=== PATIENT | male | born 1960 | race Caucasian/White ===

== ENCOUNTER 2020-04-11 08:02 | Outpatient (REF) | payer OTHER, SELFPAY ==
--- NOTE | 2020-04-11 09:42 | XR_ITS ---
EXAMINATION: XR ELBOW, RIGHT CLINICAL INFORMATION: Pain COMPARISON: None TECHNIQUE: AP, lateral, and oblique views of the right elbow. FINDINGS: The bones and soft tissues are normal. No fracture or joint effusion. Alignment is anatomic. Joint spaces are maintained. XR/XR elbow RT min 3V IMPRESSION: Normal right elbow.
== END 2020-04-11 08:03 | disposition home or self-care (01) ==
LOC: HO.HOSX 08:02
PROVIDERS: Visit Provider Physician Assistant
DX: M25.521 Pain in right elbow (principal); M77.11 Lateral epicondylitis, right elbow; Z87.891 Personal history of nicotine dependence
CPT/HCPCS: 73080

== ENCOUNTER 2020-05-08 19:41 | Emergency (ER) | payer OTHER, SELFPAY ==
[2020-05-08 19:52] VITALS: BP 111/93; PULSE 96; RESP 18; TEMP 36.8; O2SAT 98; BMI 26.9
[2020-05-08 20:55] VITALS: BP 123/84; O2SAT 99
--- NOTE | 2020-05-08 20:56 | PC.NURSE ---
lying : 132/89 68 bpm sittin/84 77 bpm standin/73 90 bpm. earnest pa aware. plan for flluids. pt agreeable
--- NOTE | 2020-05-08 21:01 | ED.DIZZY ---
HPI - Dizziness General Chief Complaint: Dizziness Stated Complaint: covid + Time Seen by Provider: 05/08/20 20:30 Source: patient Mode of arrival: ambulatory Limitations: no limitations History of Present Illness HPI Narrative: 60 y/o male diagnosed with COVID-19 on 04/28 is presenting with dizziness upon standing that started earlier this morning. He reports it only occurs when he stands up quickly and takes a few moments to resolve. No chest pain, SOB, weakness, numbness or tingling. No difficulty ambulating. He also reports itchy bilateral hands and feet. Has been washing his hands much more frequently since diagnosis of COVID. He thinks his lips might be a little swollen and bluish coloration of lower lip. MD elicited complaint: dizziness Pertinent past history: other (COVID+) Onset (ago): day(s) Timing: sudden onset, intermittent and episodic Severity: moderate Description: lightheadedness Context: change in body position History of similar symptoms: Yes Exacerbating factors: change in body position and standing Relieving factors: remaining still and lying down Associated symptoms: denies other symptoms Related Data Home Medications Medication Instructions Recorded Confirmed mesalamine 400 mg tablet,delayed mg PO 04/11/20 release sertraline 50 mg tablet 50 mg PO DAILY 04/11/20 tamsulosin 0.4 mg capsule 0.4 mg PO DAILY 04/11/20 Previous Rx's Medication Instructions Recorded naproxen 500 mg tablet 500 mg PO BID 30 Days #60 tab 04/11/20 prednisone 40 mg PO DAILY #10 tab 05/08/20 Allergies Allergy/AdvReac Type Severity Reaction Status Date / Time No Known Allergies Allergy Verified 05/08/20 19:52 Review of Systems Review of Systems: Constitutional: No Fever, No Chills ENT/Mouth: No sore throat, No Rhinorrhea, No Swallowing Difficulty Eyes: No Eye Pain, No Swelling, No Redness Cardiovascular: No Chest Pain, No SOB, No Orthopnea, No Edema Respiratory: No Cough, No Sputum, No Wheezing, No dyspnea Gastrointestinal: No Nausea, No Vomiting, No Diarrhea, No abdominal Pain, No Hematochezia, No Melena Genitourinary: No Dysuria, No Urinary Frequency, No Hematuria Musculoskeletal: No joint pain, No Myalgias Skin: No Skin Lesions, No rash Neuro: No Weakness, No Numbness, No Dizziness, No Headache Psych: No Anxiety/Panic, No Depression Heme/Lymph: No Bruising, No Lymphadenopathy Endocrine: No Polyuria, No Polydipsia [facility] Past Medical History Medical History (Updated 05/08/20 @ 23:39 by CHAD Devi) Angioleiomyoma BPH (benign prostatic hyperplasia) Bundle branch block Cervical radiculopathy Herpes dermatitis Lumbar disc disease Reactive depression Ulcerative colitis Varicose veins of anus or rectum Surgical History (Updated 04/11/20 @ 09:50 by Palma Burrows CMA) History of spinal fusion [place] teeth extracted Social History Social History (Updated 04/11/20 @ 09:55 by Palma Burrows CMA) Alcohol intake: current Alcohol intake frequency: holidays/special occasions only Smoking Status: Former smoker Advance Directives: No Advance Directives Information Provided: Yes 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[employer], 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 Physical Exam Vital Signs: Vital Signs: Last Vital Signs Temp 98.3 F 05/08/20 19:52 Pulse 87 05/08/20 23:47 Resp 16 05/08/20 22:13 BP 106/86 05/08/20 23:47 Pulse Ox 96 05/08/20 22:13 Body Mass Index 26.9 Constitutional: No Fever, No Chills ENT/Mouth: No sore throat, No Rhinorrhea, No Swallowing Difficulty Eyes: No Eye Pain, + Swelling, + Redness, +itching Cardiovascular: No Chest Pain, No SOB, No Orthopnea, No Edema Respiratory: No Cough, No Sputum, No Wheezing, No dyspnea Gastrointestinal: No Nausea, No Vomiting, No Diarrhea, No abdominal Pain Musculoskeletal: No joint pain, + Myalgias Skin: No Skin Lesions, + rash Neuro: No Weakness, No Numbness, + Dizziness, +Headache Psych: No Anxiety/Panic, No Depression Heme/Lymph: No Bruising Course Course Course Narrative: 60 y/o COVID positive with postural dizziness, normal neurological exam. Orthostatic + - will give 1L IVF and check basic labs to r/o renal failure and electrolyte abnormalities Reevaluation(s) Reevaluation #1: Patient developed bilateral eye itching, redness and swelling with itching in hands and mild lip swelling concerning for allergic reaction. No SOB, wheezing or airway involvement. He is not on any medications, denies environmental exposures prior to arrival, last at at 1pm. No known food allergies. Will give dose of solumedrol, pepcid, bendryl and monitor. Reevaluation #2: Improvement in symptoms after steroids and benadryl. Repeat orthostatic VS pending. Reevaluation #3: Repeat orthostatic VS negative. Feels much better. Stable for d/c. MDM - Dizziness Lab Data Result diagrams: 05/08/20 21:05 05/08/20 21:05 Labs: Lab Results 05/08/20 05/08/20 Range/Units 21:05 21:05 WBC 7.6 (4.8-10.8) X10*3/uL RBC 5.69 (4.60-5.80) X10*6/uL Hgb 17.2 (14.0-18.0) g/dl Hct 50.9 (42-52) % MCV 89.5 (80-98) fL MCH 30.2 (27.0-33.0) pg MCHC 33.8 (31.0-36.0) g/dl RDW 12.1 (11.0-16.0) % Plt Count 269 (160-400) X10*3/uL MPV 9.6 (9.4-12.4) fL Immature Gran % (Auto) 0.5 H (0.0-0.4) % Neut % (Auto) 66.4 (45-73) % Lymph % (Auto) 23.9 (20-40) % [place] % (Auto) 7.7 (2-11) % Eos % (Auto) 1.2 (0-4) % Baso % (Auto) 0.3 (0-2) % Lymph # (Auto) 1.8 (1.2-4.9) X10*3/uL [place] # (Auto) 0.6 (0.1-1.2) X10*3/uL Eos # (Auto) 0.1 (0.0-0.4) X10*3/uL Baso # (Auto) 0.0 (0.0-0.2) X10*3/uL Abs Immat Gran (auto) 0.04 H (0.00-0.03) X10*3/uL Absolute Neuts (auto) 5.1 (2.0-8.3) X10*3/uL Absolute Nucleated RBC 0.000 (0.0-0.012) X10*3/uL Nucleated RBC % (auto) 0.0 (0.0-0.2) /100WBC Sodium 136 (135-145) mmol/L Potassium 4.3 (3.3-5.1) mmol/l Chloride 102 (96-108) mmol/L Carbon Dioxide 25 (22-29) mmol/L Anion Gap 13 (12-20) BUN 23 H (9-16) mg/dL Creatinine 1.13 (0.5-1.4) mg/dL Estim Creat Clear Calc 78.8 Estimated GFR > 60 Random Glucose 106 (60-115) mg/dL Calcium 8.5 (8.4-10.2) mg/dL Discharge Plan Discharge Clinical Impression: Orthostatic hypotension, COVID-19 Allergic reaction Qualifiers: Encounter type: initial encounter Qualified Code(s): T78.40XA - Allergy, unspecified, initial encounter Patient Disposition: Home, Self-Care Instructions: General Allergic Reaction (ED), COVID-19 (Coronavirus Disease 2019) (ED) Additional Instructions: Your labs showed mild dehydration. You were given IV fluids while in the ER with improvement in your vital signs. When changing positions, do so slowly until you are completely recovered from COVID-19. Rest and stay hydrated at home. Drink plenty of water. Take the prescribed steroid medication for allergic reaction. Take Benadryl 25-50 mg every 6 hours as needed for itching or swelling. Follow up with your doctor this week. If you develop worsening symptoms, shortness of breath, difficulty breathing or any other concerning symptom come back to the ER for further evaluation. Prescriptions: New prednisone 20 mg tablet 40 mg PO DAILY Qty: 10 RF: 0 No Action naproxen 500 mg tablet 500 mg PO BID 30 Days Qty: 60 RF: 3
[2020-05-08] MEDS: 0.9 % Sodium Chloride 1,000 ML 999 ML IVCONT (21:02)
[2020-05-08 21:11] LABS: Basophils Percent Auto 0.3 % (0-2); Eosinophils Absolute Auto 0.1 X10*3/uL (0.0-0.4); Eosinophils Percent Auto 1.2 % (0-4); Hematocrit 50.9 % (42-52); Hemoglobin 17.2 g/dl (14.0-18.0); Imm Gran Abs Auto 0.04 X10*3/uL (0.00-0.03); Imm Gran Pct Auto 0.5 % (0.0-0.4); Lymphocytes Absolute Auto 1.8 X10*3/uL (1.2-4.9); Lymphocytes Percent Auto 23.9 % (20-40); MANUAL DIFF FLAG NO; Mean Corpuscular HGB Conc 33.8 g/dl (31.0-36.0); Mean Corpuscular Hemoglobin 30.2 pg (27.0-33.0); Mean Corpuscular Volume 89.5 fL (80-98); Mean Platelet Volume 9.6 fL (9.4-12.4); Monocytes Absolute Auto 0.6 X10*3/uL (0.1-1.2); Monocytes Percent Auto 7.7 % (2-11); Neutrophils Absolute Auto 5.1 X10*3/uL (2.0-8.3); Neutrophils Percent Auto 66.4 % (45-73); Platelet Count 269 X10*3/uL (160-400); Red Blood Count 5.69 X10*6/uL (4.60-5.80); Red Cell Distribution Width 12.1 % (11.0-16.0); White Blood Count 7.6 X10*3/uL (4.8-10.8)
[2020-05-08 21:41] LABS: Anion Gap 13 (12-20); Blood Urea Nitrogen 23 mg/dL (9-16); Calcium 8.5 mg/dL (8.4-10.2); Carbon Dioxide 25 mmol/L (22-29); Chloride 102 mmol/L (96-108); Creatinine Clr Calc Pharmacy 78.8; Estimated Glomerular Filt Rate > 60; Glucose Random 106 mg/dL (60-115); Potassium 4.3 mmol/l (3.3-5.1); Sodium 136 mmol/L (135-145)
[2020-05-08] MEDS: diphenhydrAMINE HCL 25 MG TABLET PO (22:11)
--- NOTE | 2020-05-08 22:11 | PC.NURSE ---
Pt reports itching, redness and swelling noted to eyes and lips. Pt requesting Benadryl, medicated with Benadryl per MAR. Pt denies any recent allergens, states he has no allergies, denies new soaps/foods. VSS. Continue to monitor.
[2020-05-08 22:13] VITALS: BP 129/82; PULSE 60; RESP 16; O2SAT 96
--- NOTE | 2020-05-08 22:30 | PC.NURSE ---
MD at bedside to reeval pt due to increased itching and erthyema/swelling to eyes and lips. Pt speaking full sentences, denies difficulty swallowing. Pt aware of plan to medicate with steroids.
[2020-05-08] MEDS: Famotidine/PF 20 MG/2 ML VIAL IVPUSH (22:49)
[2020-05-08] MEDS: methylPREDNISolone Sod Succ/PF 125 MG/2 ML VIAL IVPUSH (22:49)
--- NOTE | 2020-05-08 23:26 | PC.NURSE ---
Pt reports some relief of itching, reports his feet remain itchy. Swelling and erythema to bilat eyes noted to have improved. Pt sleeping in bed at this time. Continue to monitor.
[2020-05-08 23:44] VITALS: BP 113/78; BP 120/84; PULSE 60; PULSE 74
[2020-05-08 23:47] VITALS: BP 106/86; PULSE 87
--- NOTE | 2020-05-08 23:50 | PC.NURSE ---
Orthos complete, pt denies dizziness/weakness throughout position changed. Pt's BP noted to drop from sitting to standing position. Sitting 120/84, HR 74 Standing 106/86, HR 87 PA aware. Pt requesting to use the bathroom, ambulating with a miramontes/steady gait. Continue to monitor.
--- NOTE | 2020-05-08 23:53 | PC.NURSE ---
PA at bedside for reeval. Pt aware of plan of care for DC home.
== END 2020-05-09 00:28 | disposition home or self-care (01) ==
PROVIDERS: Physician Assistant; Emergency Provider Internal Medicine; PCP Internal Medicine
DX: I95.1 Orthostatic hypotension (principal); T78.40XA Allergy, unspecified, initial encounter; X58.XXXA Exposure to other specified factors, initial encounter; Z86.16 Personal history of COVID-19
CPT/HCPCS: 36415; 80048; 85025; 96361; 96374; 96375; 99284; J2930; Q0163

== ENCOUNTER 2021-01-22 07:10 | Outpatient (REF) | payer BC, SELFPAY ==
--- NOTE | ~2021-01-22 | XR_ITS ---
EXAMINATION: XR HIP, LEFT CLINICAL INFORMATION: Left hip pain COMPARISON: None TECHNIQUE: Two views of the left hip. FINDINGS: Bones and soft tissues are normal. No fracture. Alignment is anatomic. Hip joint space is maintained. XR/XR hip LT min 2V IMPRESSION: Normal left hip.
--- NOTE | 2021-01-22 07:37 | ECG_ITS ---
Test Reason : f32.9 Blood Pressure : / mmHG Vent. Rate : 061 BPM Atrial Rate : 061 BPM P-R Int : 208 ms QRS Dur : 134 ms QT Int : 442 ms P-R-T Axes : 042 -46 034 degrees QTc Int : 444 ms Normal sinus rhythm Right bundle branch block Left anterior fascicular block Bifascicular block Minimal voltage criteria for LVH, may be normal variant ( R in aVL ) Abnormal ECG When compared with ECG of 30-DEC-2011 10:33, (RBBB and left anterior fascicular block) is now Present Referred By: Dieudonne Luna Electronically Signed By:DIEUDONNE ARRIETA
[2021-01-22 07:49] LABS: MANUAL DIFF FLAG NO
[2021-01-22 07:58] LABS: Basophils Percent Auto 0.8 % (0-2); Eosinophils Absolute Auto 0.2 X10*3/uL (0.0-0.4); Eosinophils Percent Auto 2.9 % (0-4); Hemoglobin 14.8 g/dl (14.0-18.0); Imm Gran Abs Auto 0.03 X10*3/uL (0.00-0.03); Imm Gran Pct Auto 0.6 % (0.0-0.4); Lymphocytes Absolute Auto 1.3 X10*3/uL (1.2-4.9); Lymphocytes Percent Auto 24.8 % (20-40); Mean Corpuscular HGB Conc 33.6 g/dl (31.0-36.0); Mean Corpuscular Hemoglobin 29.7 pg (27.0-33.0); Mean Corpuscular Volume 88.4 fL (80-98); Mean Platelet Volume 9.6 fL (9.4-12.4); Monocytes Absolute Auto 0.5 X10*3/uL (0.1-1.2); Monocytes Percent Auto 9.7 % (2-11); Neutrophils Absolute Auto 3.2 X10*3/uL (2.0-8.3); Neutrophils Percent Auto 61.2 % (45-73); Platelet Count 222 X10*3/uL (160-400); Red Blood Count 4.98 X10*6/uL (4.60-5.80); Red Cell Distribution Width 12.6 % (11.0-16.0); White Blood Count 5.2 X10*3/uL (4.8-10.8)
[2021-01-22 08:14] LABS: Alanine Aminotransferase 23 U/L (0-40); Albumin Level 4.4 g/dL (3.5-5.0); Alkaline Phosphatase 137 U/L (39-117); Anion Gap 12 (12-20); Aspartate Amino Transferase 23 U/L (5-37); Bilirubin Total 0.4 mg/dL (0.0-1.0); Blood Urea Nitrogen 16 mg/dL (9-16); Calcium 9.6 mg/dL (8.4-10.2); Carbon Dioxide 24 mmol/L (22-29); Chloride 107 mmol/L (96-108); Cholesterol 222 mg/dL; Estimated Glomerular Filt Rate > 60; Glucose Fasting 101 mg/dL (60-99); HDL Cholesterol 46 mg/dL; LDL Cholesterol Calculated 145 mg/dl; Potassium 4.3 mmol/L (3.3-5.1); Sodium 139 mmol/L (135-145); Triglycerides 155 mg/dL
[2021-01-22 08:43] LABS: PSA,Total (Free>4and<10) 5.96 ng/mL (0.00-4.00); Thyroid Stimulating Hormone 2.05 uIU/mL (0.32-4.0); Vitamin D 25-OH Total 31.8 ng/mL (>30)
[2021-01-23 04:31] LABS: SARS COV2 IgG Negative (Negative)
[2021-01-26 15:57] LABS: Free Prostate Spec Ag 0.6 ng/mL; Percent Free Prostate Spec Ag 11 % (calc) (>25); Prostate Specific Ag Total 5.4 ng/mL (< OR = 4.0)
== END 2021-01-22 07:11 | disposition home or self-care (01) ==
LOC: HO.XRAY 07:10
PROVIDERS: PCP Internal Medicine; Visit Provider Internal Medicine
DX: Z12.5 Encounter for screening for malignant neoplasm of prostate (principal); F32.9 Major depressive disorder, single episode, unspecified; K51.90 Ulcerative colitis, unspecified, without complications; N52.9 Male erectile dysfunction, unspecified; U07.1 COVID-19; N40.0 Benign prostatic hyperplasia without lower urinary tract symptoms
CPT/HCPCS: 36415; 73502; 80053; 80061; 82306; 84153; 84154; 84443; 85025; 86769; 93005

== ENCOUNTER 2021-05-15 06:02 | Outpatient (REF) | payer BC, SELFPAY ==
[2021-05-15 12:10] LABS: Alanine Aminotransferase 26 U/L (0-40); Albumin Level 4.4 g/dL (3.5-5.0); Alkaline Phosphatase 118 U/L (39-117); Anion Gap 12 (12-20); Aspartate Amino Transferase 25 U/L (5-37); Bilirubin Total 0.7 mg/dL (0.0-1.0); Blood Urea Nitrogen 18 mg/dL (9-16); Calcium 9.4 mg/dL (8.4-10.2); Carbon Dioxide 23 mmol/L (22-29); Chloride 107 mmol/L (96-108); Cholesterol 150 mg/dL; Estimated Glomerular Filt Rate > 60; Glucose Fasting 86 mg/dL (60-99); HDL Cholesterol 41 mg/dL; LDL Cholesterol Calculated 76 mg/dl; Potassium 4.4 mmol/L (3.3-5.1); Sodium 138 mmol/L (135-145); Triglycerides 167 mg/dL
== END 2021-05-15 06:03 | disposition home or self-care (01) ==
LOC: HO.HMGCLDS 06:02
PROVIDERS: PCP Internal Medicine; Visit Provider Internal Medicine
DX: Z00.00 Encounter for general adult medical examination without abnormal findings (principal); K51.90 Ulcerative colitis, unspecified, without complications; E78.00 Pure hypercholesterolemia, unspecified
CPT/HCPCS: 36415; 80053; 80061

== ENCOUNTER 2021-06-01 09:38 | Emergency (ER) | payer BC, SELFPAY ==
--- NOTE | ~2021-06-01 | XR_ITS ---
EXAMINATION: XR CHEST CLINICAL INFORMATION: Chest pain COMPARISON: None TECHNIQUE: Frontal view of the chest was obtained. FINDINGS: No significant abnormality is noted involving the heart, lungs, mediastinum, bony thorax or soft tissues. XR/XR chest 1V IMPRESSION: Unremarkable chest examination.
--- NOTE | 2021-06-01 09:50 | ECG_ITS ---
Test Reason : CHST PAIN Blood Pressure : / mmHG Vent. Rate : 067 BPM Atrial Rate : 277 BPM P-R Int : 000 ms QRS Dur : 134 ms QT Int : 432 ms P-R-T Axes : 040 -42 034 degrees QTc Int : 456 ms Artifact in tracing Left axis deviation Right bundle branch block Minimal voltage criteria for LVH, may be normal variant ( R in aVL ) Abnormal ECG When compared with ECG of 22-JAN-2021 07:43, No significant changes seen Referred By: Generic ED Physician Electronically Signed By:PERRY HANSON
[2021-06-01 09:51] VITALS: BP 127/91; PULSE 72; RESP 18; TEMP 37; O2SAT 98; BMI 26.3
--- NOTE | 2021-06-01 10:51 | ED_ITS ---
HPI - Chest Pain General Chief Complaint: Chest Pain Stated Complaint: Chestpain Time Seen by Provider: 06/01/21 10:49 Source: patient Mode of arrival: ambulatory Limitations: no limitations History of Present Illness HPI narrative: 61-year-old male who presents emergency department for evaluation of chest pain. Patient states that the developed a heartburn like sensation at 7:30 a.m. this morning. He states that the discomfort came on while he was driving to work. He points to his sternum and left breast when asked to localize the pain. Describes as a burning sensation. The pain is been constant and is 4/10 at its worst. he took Tums at home with no change.He states that is improving Since he has been here in the emergency department is probably 2/10 at the time of my evaluation. He denies radiation of the pain to his neck, jaw, back or arms. He denied shortness of breath, dyspnea on exertion, diaphoresis lightheadedness or dizziness. States he does feel anxious with the pain. This is the patient's 1st episode of this type of pain. The patient states that he exercises regularly and does weights and cardio exercises and he has had no limitations or chest pain in the past week. He states that yesterday he used his soot blower and shuffled his father's driveway without any shortness of breath, dyspnea on exertion or chest pain. Patient's only cardiac risk factors Arehigh cholesterol just started on statins, age. Related Data Home Medications Medication Instructions Recorded Confirmed mesalamine 400 mg tablet,delayed mg PO 04/11/20 release sertraline 50 mg tablet 50 mg PO DAILY 04/11/20 tamsulosin 0.4 mg capsule 0.4 mg PO DAILY 04/11/20 Previous Rx's Medication Instructions Recorded naproxen 500 mg tablet 500 mg PO BID 30 Days #60 tab 04/11/20 prednisone 20 mg tablet 40 mg PO DAILY #10 tab 05/08/20 Allergies Allergy/AdvReac Type Severity Reaction Status Date / Time No Known Allergies Allergy Verified 05/08/20 19:52 Review of Systems Verdana 4l Review of Systems: Yes all other systems are reviewed and Verdana 4d are negative [facility] Past Medical History [facility] Narrative: past medical history: Borderline high cholesterol to started on statins, recently diagnosed with prostate cancer, please see below. social history: He denies tobacco use. He denies drug use. He states he occasionally drinks alcohol. Family history: No early heart disease in primary relatives. 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 Physical Exam Verdana 4l Vital Signs: Verdana 4d Verdana 4d Vital Signs: Verdana 4d Verdana 4Bd Last Vital Signs Verdana 4d Fermentation Manager New 4d Fermentation Manager New 4d Temp 98.6 F 06/01/21 09:51 Fermentation Manager New 4d Pulse 58 06/01/21 12:14 Fermentation Manager New 4d Resp 14 06/01/21 12:14 BP 138/89 06/01/21 12:14 Pulse Ox 97 06/01/21 12:14 BMI result Body Mass Index 26.3 Const: General: cooperative and no acute distress Orientation/consciousness: oriented to person and oriented to place Limitations: no limitations HENMT: Head: Yes normal to inspection, Yes normocephalic and Yes atraumatic Ears: external ears normal General nose exam: Normal external nose present Face and sinus: Yes normal facial exam Mouth: Normal oral and palatal mucosa present Throat: Yes posterior oropharynx normal Eyes: General: appearance normal, both eyes and all related structures Pupils: Equal, round and reactive pupils present Neck: Neck: Yes normal visual inspection, Yes no lymphadenopathy, Yes trachea midline and Yes supple Chest: Chest palpation & inspection: normal inspection of the chest and normal palpation of entire chest wall Resp: Effort & Inspection: normal respiratory effort and able to speak in complete sentences Auscultation: clear to auscultation bilaterally Cardio: Rate: regular rate Rhythm: regular rhythm Heart sounds: S1 normal heart sound present, S2 normal heart sound present and no murmurs GI: Inspection: Yes normal to inspection Palpation (GI): Soft to palpation, nontender and no guarding Auscultation: normal bowel sounds : General: Yes no CVA tenderness Back/Spine/Pelvis: Back: no CVA tenderness Skin: General skin exam: no rashes or lesions noted Neuro: General: oriented to person and oriented to place Cranial nerves: Yes CN's II-XII intact bilaterally and Yes Equal, round and reactive pupils present Cognition (Neuro): normal cognition Motor exam (neuro): 5/5 motor strength present throughout Extrem: General: Yes normal to inspection Psych: Appearance: grossly normal Speech and movement: Normal speech and movement present Affect: normal affect Attitude: cooperative Thought process: Normal thought process present Thought content: Normal thought content present Course Course Course Narrative: 61-year-old male who presents emergency department for evaluation of sternal and left-sided chest pain that began at 7:30 a.m. while he was driving to work. Patient describes the pain as a heartburn like sensation with no other associated symptoms except anxiety. Patient's physical examination was unremarkable. Cardiac risk factors include age, male and high cholesterol. Twelve EKG was unremarkable. I did order laboratory evaluation to include CBC, CMP, troponin and chest x-ray. 1456: The patient's laboratory evaluation revealed was unremarkable. The patient's 1st high sensitive troponin I was below detectable limits. the patient's repeat at this time I do not think that the patient's pain is secondary to acute coronary syndrome and the patient's presentation is atypical for coronary artery disease. The patient was given a GI cocktail of Maalox 30 cc, viscous lidocaine 10 cc and 10 cc orally with improvement of his symptoms. The patient will be started on Pepcid and Tums. He was given printed and verbal instructions and discharged home. MDM - Chest Pain Lab Data Result diagrams: 06/01/21 11:05 06/01/21 11:05 Labs: Lab Results 06/01/21 06/01/21 06/01/21 Range/Units 11:05 11:05 11:05 WBC 5.9 (4.8-10.8) X10*3/uL RBC 4.80 (4.60-5.80) X10*6/uL Hgb 14.2 (14.0-18.0) g/dl Hct 41.9 L (42.0-52.0) % MCV 87.3 (80.0-98.0) fL MCH 29.6 (27.0-33.0) pg MCHC 33.9 (31.0-36.0) g/dl RDW 12.6 (11.0-16.0) % Plt Count 224 (160-400) X10*3/uL MPV 9.2 L (9.4-12.4) fL Immature Gran % (Auto) 0.8 H (0.0-0.4) % Neut % (Auto) 68.1 (45-73) % Lymph % (Auto) 17.5 L (20-40) % [place] % (Auto) 11.1 H (2-11) % Eos % (Auto) 1.7 (0-4) % Baso % (Auto) 0.8 (0-2) % Lymph # (Auto) 1.0 L (1.2-4.9) X10*3/uL [place] # (Auto) 0.7 (0.1-1.2) X10*3/uL Eos # (Auto) 0.1 (0.0-0.4) X10*3/uL Baso # (Auto) 0.1 (0.0-0.2) X10*3/uL Abs Immat Gran (auto) 0.05 H (0.00-0.03) X10*3/uL Absolute Neuts (auto) 4.0 (2.0-8.3) x10*3/uL Absolute Nucleated RBC 0.000 (0.0-0.012) X10*3/uL Nucleated RBC % (auto) 0.0 (0.0-0.2) /100WBC Sodium 140 (135-145) mmol/L Potassium 4.7 (3.3-5.1) mmol/L Chloride 109 H (96-108) mmol/L Carbon Dioxide 25 (22-29) mmol/L Anion Gap 11 L (12-20) BUN 18 H (9-16) mg/dL Creatinine 0.98 (0.5-1.4) mg/dL Estim Creat Clear Calc 89.7 Estimated GFR > 60 Random Glucose 99 (60-115) mg/dL Calcium 9.7 (8.4-10.2) mg/dL Total Bilirubin 0.5 (0.0-1.0) mg/dL AST 25 (5-37) U/L ALT 28 (0-40) U/L Alkaline Phosphatase 123 H (39-117) U/L Troponin I High Sens < 3.5 (<3.5-35.0) ng/L Total Protein 6.7 (6.5-8.0) g/dL Albumin 4.1 (3.5-5.0) g/dL 06/01/21 Range/Units 13:58 WBC (4.8-10.8) X10*3/uL RBC (4.60-5.80) X10*6/uL Hgb (14.0-18.0) g/dl Hct (42.0-52.0) % MCV (80.0-98.0) fL MCH (27.0-33.0) pg MCHC (31.0-36.0) g/dl RDW (11.0-16.0) % Plt Count (160-400) X10*3/uL MPV (9.4-12.4) fL Immature Gran % (Auto) (0.0-0.4) % Neut % (Auto) (45-73) % Lymph % (Auto) (20-40) % [place] % (Auto) (2-11) % Eos % (Auto) (0-4) % Baso % (Auto) (0-2) % Lymph # (Auto) (1.2-4.9) X10*3/uL [place] # (Auto) (0.1-1.2) X10*3/uL Eos # (Auto) (0.0-0.4) X10*3/uL Baso # (Auto) (0.0-0.2) X10*3/uL Abs Immat Gran (auto) (0.00-0.03) X10*3/uL Absolute Neuts (auto) (2.0-8.3) x10*3/uL Absolute Nucleated RBC (0.0-0.012) X10*3/uL Nucleated RBC % (auto) (0.0-0.2) /100WBC Sodium (135-145) mmol/L Potassium (3.3-5.1) mmol/L Chloride (96-108) mmol/L Carbon Dioxide (22-29) mmol/L Anion Gap (12-20) BUN (9-16) mg/dL Creatinine (0.5-1.4) mg/dL Estim Creat Clear Calc Estimated GFR Random Glucose (60-115) mg/dL Calcium (8.4-10.2) mg/dL Total Bilirubin (0.0-1.0) mg/dL AST (5-37) U/L ALT (0-40) U/L Alkaline Phosphatase (39-117) U/L Troponin I High Sens < 3.5 (<3.5-35.0) ng/L Total Protein (6.5-8.0) g/dL Albumin (3.5-5.0) g/dL ECG Data ECG #1: Interpretation: 1105: normal sinus rhythm rate of 63, normal [place], QTC intervals, prolonged QRS interval 134 milliseconds, right bundle-branch block, no ST segment elevation, no ST segment depression, no PACs, no PVCs, no significant change compared to 01/22/2021 Discharge Plan Discharge Clinical Impression: Chest pain, GERD (gastroesophageal reflux disease) Patient Disposition: Home, Self-Care Instructions: Gastroesophageal Reflux Disease (ED), Chest Pain (ED) Additional Instructions: Your EKG was normal. Your laboratory evaluation was unremarkable. Your 1st high sensitivity troponin I was below detectable limits. Your repeat 3 hour high sensitivity troponin I was also below detectable limits, this is a reassuring suggesting that your pain was not caused by any heart damage. Since your pain came on while you are driving and not with exertion, I think that your pain is atypical for heart pain and is more likely secondary to acid refluxing on your esophagus. Take Pepcid (famotidine) 20 mg pills, 1 pill once a day for 2-4 weeks. Take Tums, 3 tablets 4 times a day as needed for symptoms. Follow-up with your doctor in 2 days. Please return to the emergency department if your symptoms get worse or if you develop any symptoms that are concerning to you. Prescriptions: No Action prednisone 20 mg tablet 40 mg PO DAILY Qty: 10 0RF naproxen 500 mg tablet 500 mg PO BID 30 Days Qty: 60 3RF
[2021-06-01 11:09] LABS: MANUAL DIFF FLAG NO
[2021-06-01 11:25] LABS: Basophils Absolute Auto 0.1 X10*3/uL (0.0-0.2); Basophils Percent Auto 0.8 % (0-2); Eosinophils Absolute Auto 0.1 X10*3/uL (0.0-0.4); Eosinophils Percent Auto 1.7 % (0-4); Hematocrit 41.9 % (42.0-52.0); Hemoglobin 14.2 g/dl (14.0-18.0); Imm Gran Abs Auto 0.05 X10*3/uL (0.00-0.03); Imm Gran Pct Auto 0.8 % (0.0-0.4); Lymphocytes Percent Auto 17.5 % (20-40); Mean Corpuscular HGB Conc 33.9 g/dl (31.0-36.0); Mean Corpuscular Hemoglobin 29.6 pg (27.0-33.0); Mean Corpuscular Volume 87.3 fL (80.0-98.0); Mean Platelet Volume 9.2 fL (9.4-12.4); Monocytes Absolute Auto 0.7 X10*3/uL (0.1-1.2); Monocytes Percent Auto 11.1 % (2-11); Neutrophils Percent Auto 68.1 % (45-73); Platelet Count 224 X10*3/uL (160-400); Red Cell Distribution Width 12.6 % (11.0-16.0); White Blood Count 5.9 X10*3/uL (4.8-10.8)
[2021-06-01 11:38] LABS: Alanine Aminotransferase 28 U/L (0-40); Albumin Level 4.1 g/dL (3.5-5.0); Alkaline Phosphatase 123 U/L (39-117); Anion Gap 11 (12-20); Aspartate Amino Transferase 25 U/L (5-37); Bilirubin Total 0.5 mg/dL (0.0-1.0); Blood Urea Nitrogen 18 mg/dL (9-16); Calcium 9.7 mg/dL (8.4-10.2); Carbon Dioxide 25 mmol/L (22-29); Chloride 109 mmol/L (96-108); Creatinine Clr Calc Pharmacy 89.7; Estimated Glomerular Filt Rate > 60; Glucose Random 99 mg/dL (60-115); Potassium 4.7 mmol/L (3.3-5.1); Sodium 140 mmol/L (135-145); Total Protein 6.7 g/dL (6.5-8.0)
[2021-06-01 11:40] LABS: Troponin-I High Sensitivity < 3.5 ng/L (<3.5-35.0)
[2021-06-01 12:14] VITALS: BP 138/89; PULSE 58; RESP 14; O2SAT 97
[2021-06-01] MEDS: Lidocaine HCl Viscous 2 % 15 ML SOLUTION 10 ML PO (12:17)
[2021-06-01] MEDS: PHENobarb/Hyoscy/Atropine/Scop 10 ML ELIXIR PO (12:18)
[2021-06-01] MEDS: Magnesium Hydrox/Alum Hydrox 30 ML ORAL.SUSP PO (12:18)
[2021-06-01 14:22] LABS: Troponin-I High Sensitivity < 3.5 ng/L (<3.5-35.0)
== END 2021-06-01 15:11 | disposition home or self-care (01) ==
PROVIDERS: Emergency Provider Emergency Medicine Emergency Medical Services; PCP Internal Medicine
DX: R07.9 Chest pain, unspecified (principal); K21.9 Gastro-esophageal reflux disease without esophagitis
CPT/HCPCS: 36415; 71045; 80053; 84484; 85025; 93005; 99284

== ENCOUNTER 2021-07-11 09:30 | Outpatient (REF) | payer BC, SELFPAY ==
[2021-07-11 09:47] LABS: MANUAL DIFF FLAG NO
[2021-07-11 10:41] LABS: Basophils Percent Auto 0.8 % (0-2); Eosinophils Absolute Auto 0.1 X10*3/uL (0.0-0.4); Eosinophils Percent Auto 2.4 % (0-4); Hematocrit 43.2 % (42.0-52.0); Hemoglobin 14.5 g/dl (14.0-18.0); Imm Gran Abs Auto 0.02 X10*3/uL (0.00-0.03); Imm Gran Pct Auto 0.4 % (0.0-0.4); Lymphocytes Absolute Auto 1.3 X10*3/uL (1.2-4.9); Lymphocytes Percent Auto 25.2 % (20-40); Mean Corpuscular HGB Conc 33.6 g/dl (31.0-36.0); Mean Corpuscular Hemoglobin 29.7 pg (27.0-33.0); Mean Corpuscular Volume 88.5 fL (80.0-98.0); Mean Platelet Volume 9.9 fL (9.4-12.4); Monocytes Absolute Auto 0.5 X10*3/uL (0.1-1.2); Monocytes Percent Auto 9.4 % (2-11); Neutrophils Absolute Auto 3.3 x10*3/uL (2.0-8.3); Neutrophils Percent Auto 61.8 % (45-73); Platelet Count 248 X10*3/uL (160-400); Red Blood Count 4.88 X10*6/uL (4.60-5.80); Red Cell Distribution Width 12.8 % (11.0-16.0); White Blood Count 5.3 X10*3/uL (4.8-10.8)
[2021-07-11 10:51] LABS: Anion Gap 13 (12-20); Blood Urea Nitrogen 18 mg/dL (9-16); Calcium 9.7 mg/dL (8.4-10.2); Carbon Dioxide 25 mmol/L (22-29); Chloride 105 mmol/L (96-108); Estimated Glomerular Filt Rate > 60; Glucose Random 89 mg/dL (60-115); Potassium 4.8 mmol/L (3.3-5.1); Sodium 138 mmol/L (135-145)
== END 2021-07-11 09:31 | disposition home or self-care (01) ==
LOC: HO.LAB 09:30
PROVIDERS: PCP Internal Medicine; Visit Provider Internal Medicine
DX: C61 Malignant neoplasm of prostate (principal)
CPT/HCPCS: 36415; 80048; 85025

== ENCOUNTER 2022-04-12 08:37 | Outpatient (REF) | payer BC, SELFPAY ==
--- NOTE | ~2022-04-12 | XR_ITS ---
EXAMINATION: XR CHEST CLINICAL INFORMATION: Pain pleurisy COMPARISON: 06/01/2021 TECHNIQUE: 2 views of the chest were obtained. FINDINGS: Left basilar opacity consistent with atelectasis versus infiltrate. The right lung is grossly clear. There is no effusion. The cardiac silhouette is felt to be within normal limits. The hilar regions do not appear pathologically enlarged. Mild degeneration in the thoracic spine. XR/XR chest 2V IMPRESSION: Mild left basilar opacities and minimal right mid to upper lung opacities. May represent small developing areas of infiltrate or atelectasis. Follow-up films recommended after treatment to assess for resolution and establish baseline.
== END 2022-04-12 08:38 | disposition home or self-care (01) ==
LOC: HO.HMGCX 08:37
PROVIDERS: PCP Internal Medicine; Visit Provider Emergency Medicine
DX: R07.81 Pleurodynia (principal)
CPT/HCPCS: 71046

== ENCOUNTER 2022-06-18 09:40 | Outpatient (REF) | payer BC, SELFPAY ==
--- NOTE | ~2022-06-18 | XR_ITS ---
EXAMINATION: XR CHEST CLINICAL INFORMATION: Physical examination. COMPARISON: 04/12/2022 chest radiographs. TECHNIQUE: 2 views of the chest were obtained. FINDINGS: No significant abnormality is noted involving the heart, lungs, mediastinum, bony thorax or soft tissues. XR/XR chest 2V IMPRESSION: No acute cardiopulmonary process.
== END 2022-06-18 09:41 | disposition home or self-care (01) ==
LOC: HO.HMGCX 09:40
PROVIDERS: PCP Internal Medicine; Visit Provider Internal Medicine
DX: Z00.00 Encounter for general adult medical examination without abnormal findings (principal)
CPT/HCPCS: 71046

== ENCOUNTER 2022-11-05 06:09 | Outpatient (REF) | payer BC, SELFPAY ==
--- NOTE | ~2022-11-05 | XR_ITS ---
EXAMINATION: XR CERVICAL SPINE CLINICAL INFORMATION: Cervical radiculopathy. COMPARISON: None available. TECHNIQUE: 5 views of the cervical spine, inclusive of flexion and extension views, were obtained. FINDINGS: Mild diffuse osteopenia. Postsurgical changes of anterior cervical spine fusion at C5-C7 with intact hardware. Moderate degenerative spondylosis at C4-C5 and C7-T1 and mild degenerative spondylosis at C3-C4. No evidence of any change in alignment is noted between neutral, flexion and extension lateral views. The prespinal soft tissues are unremarkable. The C1-C2 alignment is intact. Both lung apices are clear. XR/XR cervical spine w flex/ext IMPRESSION: 1. Postsurgical changes of anterior cervical spine fusion at C5-C7 with intact hardware. 2. No radiographic evidence of cervical spine instability. 3. Incidental note is made of mild degenerative spondylosis at C3-C4 and moderate degenerative spondylosis at C4-C5 and C7-T1.
[2022-11-05 15:10] LABS: Alanine Aminotransferase 24 U/L (0-40); Albumin Level 4.1 g/dL (3.5-5.0); Alkaline Phosphatase 131 U/L (39-117); Anion Gap 11 (12-20); Aspartate Amino Transferase 27 U/L (5-37); Bilirubin Total 0.5 mg/dL (0.0-1.0); Blood Urea Nitrogen 16 mg/dL (9-16); Calcium 9.1 mg/dL (8.4-10.2); Carbon Dioxide 24 mmol/L (22-29); Chloride 112 mmol/L (96-108); Cholesterol 155 mg/dL; Estimated Glomerular Filt Rate > 60; Glucose Fasting 100 mg/dL (60-99); HDL Cholesterol 50 mg/dL; LDL Cholesterol Calculated 93 mg/dl; Sodium 143 mmol/L (135-145); Total Protein 6.5 g/dL (6.5-8.0); Triglycerides 64 mg/dL
[2022-11-05 15:26] LABS: Thyroid Stimulating Hormone 1.58 uIU/mL (0.32-4.0)
== END 2022-11-05 06:10 | disposition home or self-care (01) ==
LOC: HO.HMGCX 06:09
PROVIDERS: PCP Internal Medicine; Visit Provider Internal Medicine
DX: M54.12 Radiculopathy, cervical region (principal); K51.90 Ulcerative colitis, unspecified, without complications; F32.9 Major depressive disorder, single episode, unspecified; E78.00 Pure hypercholesterolemia, unspecified; C61 Malignant neoplasm of prostate; N40.0 Benign prostatic hyperplasia without lower urinary tract symptoms
CPT/HCPCS: 36415; 72052; 80053; 80061; 84443; 85025

== ENCOUNTER 2023-07-29 07:15 | Day surgery (SDC) | payer BC, SELFPAY ==
[2023-07-27 14:39] VITALS: BMI 27.3
--- NOTE | 2023-07-27 15:22 | P.CONAN_ITS ---
Documented by User: Kellie Francis NP 07/27/23 15:23 HPI - Anesthesia Eval Consult details Narrative: 63yo M for Colonoscopy PMFSH Active Problems Active Problems: All Active Problems (Updated 07/27/23 @ 14:39 by Emily Hernandez RN) COVID-19 (Acute) Lateral epicondylitis, right elbow (Acute) Past Medical History Medical History (Updated 07/27/23 @ 14:39 by Emily Hernandez RN) RBBB (right bundle branch block) Prostate cancer Anxiety Angioleiomyoma Reactive depression BPH (benign prostatic hyperplasia) Varicose veins of anus or rectum Herpes dermatitis Cervical radiculopathy Lumbar disc disease Ulcerative colitis Surgical History Surgical History (Updated 07/27/23 @ 14:40 by Emily Hernandez RN) Hx of shoulder surgery Hx of neck surgery History of colonoscopy [place] teeth extracted History of spinal fusion Social History Social History Alcohol intake: current Alcohol intake frequency: holidays/special occasions only Patient Tobacco Use Status: Never used Tobacco 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[employer] Allergies Allergy/AdvReac Type Severity Reaction Status Date / Time No Known Allergies Allergy Verified 07/29/23 07:47 Home Medications Medication Instructions Recorded Confirmed Last Taken Type mesalamine 400 mg tablet,delayed 800 mg PO BID 04/11/20 07/27/23 Unknown History release sertraline 50 mg tablet 50 mg PO DAILY 04/11/20 07/27/23 Unknown History tamsulosin 0.4 mg capsule 0.4 mg PO DAILY 04/11/20 07/27/23 Unknown History atorvastatin 10 mg tablet 10 mg PO DAILY 04/12/22 07/27/23 Unknown History diazepam 5 mg tablet 5 mg PO DAILY PRN Anxiety 07/27/23 07/27/23 Unknown History Exam Height,Weight and Vital Signs: Height 6 ft Weight 91.172 kg Assessment and Plan Assessment Anesthesia Assessment: Chart Reviewed Documented by User: Cory Desai MD 07/29/23 07:48 [facility] Past Medical History Medical History (Updated 07/27/23 @ 14:39 by Emily Hernandez RN) RBBB (right bundle branch block) Prostate cancer Anxiety Angioleiomyoma Reactive depression BPH (benign prostatic hyperplasia) Varicose veins of anus or rectum Herpes dermatitis Cervical radiculopathy Lumbar disc disease Ulcerative colitis Family History Family history of problems with anesthesia: No Surgical History Surgical History (Updated 07/27/23 @ 14:40 by Emily Hernandez RN) Hx of shoulder surgery Hx of neck surgery History of colonoscopy [place] teeth extracted History of spinal fusion History of Problems with Anesthesia: No Social History Social History Alcohol intake: current Alcohol intake frequency: holidays/special occasions only Patient Tobacco Use Status: Never used Tobacco 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[employer], [employer] Allergies Allergy/AdvReac Type Severity Reaction Status Date / Time No Known Allergies Allergy Verified 07/29/23 07:47 Home Medications Medication Instructions Recorded Confirmed Last Taken Type mesalamine 400 mg tablet,delayed 800 mg PO BID 04/11/20 07/27/23 Unknown History release sertraline 50 mg tablet 50 mg PO DAILY 04/11/20 07/27/23 Unknown History tamsulosin 0.4 mg capsule 0.4 mg PO DAILY 04/11/20 07/27/23 Unknown History atorvastatin 10 mg tablet 10 mg PO DAILY 04/12/22 07/27/23 Unknown History diazepam 5 mg tablet 5 mg PO DAILY PRN Anxiety 07/27/23 07/27/23 Unknown History Exam Airway Mallampati Class: II TM Dist: >3cm Neck ROM: Full Loose/Missing/Broken Teeth: No Heart: rrr Lungs: cta b/l Assessment and Plan Assessment Anesthesia Assessment: Anesthesia Plan Discussed Final Anesthetic Review Family History of Problems with Anesthesia: No History of Problems with Anesthesia: No NPO: Yes ASA Class: II Final Preanesthetic Review: No Changes in Pt Med Stat, Meds/Allgs Chart Reviewed, Consent Obtained/Reviewed and Anes Risks/Benef Reviewed Patient Risk: Intermediate Procedure Risk: Intermediate Anesthetic Plan Anesthetic Plan: MAC: Disposition: Standard PACU
[2023-07-29 07:44] VITALS: BMI 27.9
[2023-07-29] MEDS: Lactated Ringers 1,000 ML 100 ML IVCONT (07:53)
[2023-07-29 08:01] VITALS: BP 116/87; PULSE 71; RESP 18; TEMP 36.3; O2SAT 98
[2023-07-29 09:27] VITALS: BP 109/75; PULSE 71; RESP 20; TEMP 36.7; O2SAT 98
--- NOTE | 2023-07-29 09:31 | P.BOP_ITS ---
Brief Operative Note Date of Service: 07/29/23 Pre-op diagnosis: Ulcerative colitis, Screening Post-op diagnosis: other (Same, Diverticulosis) Procedure: Colonoscopy to the cecum with biopsies Surgeon: Dieudonne Santoyo MD Anesthesia: MAC Was an [employer] used for this Procedure?: No Estimated blood loss (mL): 2.0 Pathology: other (A. Ascending colon B. Transverse colon C. Descending colon D. Sigmoid colon E. Rectum) Condition: stable Disposition: PACU
[2023-07-29 09:42] VITALS: BP 107/75; PULSE 65; RESP 20; O2SAT 96
--- NOTE | 2023-07-29 09:53 | OP_ITS ---
DATE OF SERVICE: 07/29/2023 SURGEON: Dieudonne Santoyo MD INDICATIONS: The patient presents for evaluation of underlying history of ulcerative colitis as well as colorectal cancer screening. Full consent has been obtained from him for this, including risks of bleeding and perforation. PREOPERATIVE DIAGNOSIS: POSTOPERATIVE DIAGNOSIS: PROCEDURE PERFORMED: Colonoscopy to the cecum with multiple biopsies. ESTIMATED BLOOD LOSS: COMPLICATIONS: ANESTHESIA: Monitored anesthesia care. ASSISTANTS: SPECIMENS: PREOPERATIVE DIAGNOSES: History of ulcerative colitis and colorectal cancer screening. POSTOPERATIVE DIAGNOSES: History of ulcerative colitis, colorectal cancer screening, rule out dysplasia, diverticulosis, small internal hemorrhoids, rectal telangiectasias. DESCRIPTION OF PROCEDURE: The patient was placed in the left lateral decubitus position. The digital rectal exam revealed no abnormalities. The Olympus video pediatric colonoscope was then entered into the rectum and advanced easily to the cecum. Once in the cecum, I did identify normal-appearing cecal pouch with appendiceal orifice and a normal-appearing ileocecal valve. The entire cecum and ileocecal valve appeared normal. The scope was slowly withdrawn assessing all mucosal surfaces carefully. Preparation was excellent. I did not visualize any sign of colitis, polyps, nor any angiodysplasias. There was a mild amount of sigmoid diverticulosis. Random biopsies were obtained in the ascending colon, transverse colon, descending colon, sigmoid colon, and rectum. The rectal mucosa appeared normal in regard to there being no sign of ulcerative proctitis. In the retroflexed position, I did visualize several nonbleeding telangiectasias in relation to the previous radiation treatment. Small internal hemorrhoids were noted as well. Biopsies were also obtained from the rectum. The scope was withdrawn from the patient. He tolerated the procedure well and was returned to the recovery area in stable condition. IMPRESSION: 1. History of ulcerative colitis, rule out dysplasia. 2. Diverticulosis. 3. Internal hemorrhoids. 4. Rectal telangiectasias. PLAN: The results of the biopsies will be checked. Assuming there is no dysplasia, I would recommend a repeat colonoscopy in 5 years. He was advised to continue his current mesalamine of which he is using just 800 mg daily. He was advised not to use any aspirin and NSAIDs for at least 1 week. He will see me in 1 year for a followup office visit as well. MD VIRI Dangelo/YANDY / [phone] RIKY
[2023-07-29 09:57] VITALS: BP 112/78; PULSE 62; RESP 16; TEMP 36.7; O2SAT 96
== END 2023-07-29 10:20 | disposition home or self-care (01) ==
PROVIDERS: PCP Internal Medicine; Visit Provider Internal Medicine
PROC: 0DJD8ZZ Inspection of Lower Intestinal Tract, Via Natural or Artificial Opening Endoscopic (ICD-10-PCS; CPT 45378; principal; 2023-07-29 08:50)
DX: Z12.11 Encounter for screening for malignant neoplasm of colon (principal); K51.30 Ulcerative (chronic) rectosigmoiditis without complications; K57.30 Diverticulosis of large intestine without perforation or abscess without bleeding; K64.8 Other hemorrhoids; N40.0 Benign prostatic hyperplasia without lower urinary tract symptoms; C61 Malignant neoplasm of prostate; K62.7 Radiation proctitis; Z79.899 Other long term (current) drug therapy; Z79.1 Long term (current) use of non-steroidal anti-inflammatories (NSAID); Z98.890 Other specified postprocedural states; Z86.16 Personal history of COVID-19
CPT/HCPCS: 45380; 88305; J0461; J1596; J2704

== ENCOUNTER 2023-08-10 12:26 | Outpatient (REF) | payer BC, SELFPAY ==
--- NOTE | ~2023-08-10 | XR_ITS ---
EXAMINATION: XR CHEST CLINICAL INFORMATION: Reason for Exam DYSPNEA ON EXERTION COMPARISON: Chest radiograph 06/18/2022 TECHNIQUE: 2 views of the chest FINDINGS: Lines and tubes: Surgical clip overlies the left scapula. Partially obscured cervical fusion hardware. Clear lungs. No pleural effusion. No pneumothorax. Normal cardiomediastinal silhouette. XR/XR chest 2V IMPRESSION: * Clear lungs.
[2023-08-10 16:13] LABS: MANUAL DIFF FLAG NO
[2023-08-10 16:19] LABS: Appearance Urine Clear; Color Urine Yellow; Glucose Urine UA Negative (Negative); Leukocyte Esterase Urine Negative (Negative); Nitrite Urine Negative (Negative); PH 5.5 (5.0-9.0); Specific Gravity - Urine >= 1.030 (1.005-1.025); Urine Blood Negative (Negative); Urine Ketones Negative (Negative); Urine Protein Negative (Neg-Trace)
[2023-08-10 16:23] LABS: Bacteria Urine None Seen (None Seen); Hyaline Casts Urine 0-2 /LPF (0-2); RBC Urine 0-2 /HPF (0-2); Squamous Epithelial Cell Urine 0-2 /HPF (0-2); WBC Urine 0-5 /HPF (0-5)
[2023-08-10 16:24] LABS: B Type Natriuretic Peptide 22 pg/mL (<100)
[2023-08-10 16:25] LABS: Basophils Absolute Auto 0.1 X10*3/uL (0.0-0.2); Basophils Percent Auto 1.1 % (0-2); Eosinophils Absolute Auto 0.1 X10*3/uL (0.0-0.4); Eosinophils Percent Auto 2.2 % (0-4); Hematocrit 42.6 % (42.0-52.0); Hemoglobin 14.5 g/dl (14.0-18.0); Imm Gran Abs Auto 0.04 X10*3/uL (0.00-0.03); Imm Gran Pct Auto 0.7 % (0.0-0.4); Mean Corpuscular Hemoglobin 29.5 pg (27.0-33.0); Mean Corpuscular Volume 86.6 fL (80.0-98.0); Mean Platelet Volume 9.9 fL (9.4-12.4); Monocytes Absolute Auto 0.6 X10*3/uL (0.1-1.2); Monocytes Percent Auto 10.3 % (2-11); Neutrophils Absolute Auto 3.6 x10*3/uL (2.0-8.3); Neutrophils Percent Auto 66.7 % (45-73); Platelet Count 296 X10*3/uL (160-400); Red Blood Count 4.92 X10*6/uL (4.60-5.80); Red Cell Distribution Width 13.2 % (11.0-16.0); White Blood Count 5.4 X10*3/uL (4.8-10.8)
[2023-08-10 17:40] LABS: Alanine Aminotransferase 25 U/L (0-40); Albumin Level 4.5 g/dL (3.5-5.0); Alkaline Phosphatase 120 U/L (39-117); Anion Gap 13 (12-20); Aspartate Amino Transferase 22 U/L (5-37); Bilirubin Total 0.6 mg/dL (0.0-1.0); Blood Urea Nitrogen 24 mg/dL (9-16); C Reactive Protein < 0.10 mg/dL (< or = 0.50); Calcium 9.2 mg/dL (8.4-10.2); Carbon Dioxide 24 mmol/L (22-29); Chloride 107 mmol/L (96-108); Estimated Glomerular Filt Rate > 60; Glucose Random 86 mg/dL (60-115); Potassium 4.3 mmol/L (3.3-5.1); Sodium 140 mmol/L (135-145); Total Protein 7.2 g/dL (6.5-8.0)
[2023-08-10 17:47] LABS: Erythrocyte Sedimentation Rate 6 MM/HR (0-15)
== END 2023-08-10 12:27 | disposition home or self-care (01) ==
LOC: HO.HMGCX 12:26
PROVIDERS: PCP Internal Medicine; Visit Provider Internal Medicine
DX: R06.09 Other forms of dyspnea (principal)
CPT/HCPCS: 36415; 71046; 80053; 81001; 83880; 85025; 85652; 86140

== ENCOUNTER → 2023-08-26 08:47 | Outpatient (REF) | payer BC, SELFPAY ==
--- NOTE | 2023-08-26 | ECG_ITS ---
Test Reason : R06.09 Blood Pressure : / mmHG Vent. Rate : 064 BPM Atrial Rate : 064 BPM P-R Int : 194 ms QRS Dur : 128 ms QT Int : 422 ms P-R-T Axes : 053 -50 044 degrees QTc Int : 435 ms Normal sinus rhythm Right bundle branch block Left anterior fascicular block Bifascicular block Minimal voltage criteria for LVH, may be normal variant ( R in aVL ) Septal infarct (cited on or before 26-AUG-2023) Abnormal ECG When compared with ECG of 01-JUN-2021 09:54, Questionable change in initial forces of Septal leads Referred By: Dieudonne Luna Electronically Signed By:RADHA MENDOZA MD
--- NOTE | 2023-08-26 08:54 | CA_ITS ---
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 Normal LV ejection fraction 55-60% with mild LVH with grade 1 diastolic dysfunction 2. Normal cardiac valvular Doppler 3. Mildly dilated ascending aorta at 3.8 cm 4. Normal RV systolic pressure 5. No pericardial effusion Findings Left Ventricle Normal left ventricular size and systolic function. There is mildly increased left ventricular wall thickness. The visually estimated ejection fraction is between 55-60%. Spectral Doppler is indicative of an impaired relaxation filling pattern. E/E prime ratio is <8, consistent with normal filling pressures. Evidence suggests grade I (mild) diastolic dysfunction. Right Ventricle Normal right ventricular cavity size and systolic function. Atria The left atrium is likely dilated. There is no evidence of interatrial shunt. The right atrium is normal in size. Aortic Valve There is no aortic valve stenosis. There is no aortic valve regurgitation. Possible bicuspid aortic valve Mitral Valve Normal mitral valve structure and function. There is trace mitral valve regurgitation. There is no mitral valve stenosis. Pulmonic Valve The pulmonic valve is likely normal. There is trace pulmonic valve regurgitation. Tricuspid Valve Normal tricuspid valve structure. There is trace tricuspid valve regurgitation. The right ventricular systolic pressure is normal. The right ventricular systolic pressure is 20 mmHg. Normal right atrial pressure. There is no evidence of pulmonary hypertension. Great Vessels The pulmonary artery was not well visualized. There is mild dilatation of the ascending aorta measuring 3.80 cm. Venous The inferior vena cava is normal in size and collapses greater than 50% with inspiration. Pericardium/Pleural There is no evidence of pericardial effusion. Prior Study Comparison Changes noted compared to prior study dated: 10/03/2018. Ascending aorta is mildly dilated. Mild LVH is noted. Measurements 2D Linear Measurements IVSd: 1.21 0.6-0.9/0.6-1.0 cm LVIDd: 4.88 3.9-5.3/4.2-5.9 cm LVIDd Index: 2.22 2.4-3.2/2.2-3.1 cm/m2 LVIDs: 3.40 2.0-3.6 cm LVPWd: 1.22 0.7-1.1 cm Ao Root: 3.30 2.1-3.5 cm LA Diam: 3.30 2.7-3.8/3.0-4.0 cm LAIDs Index: 1.50 1.5-2.3 cm/m2 LV Mass: 285.38 67-162/88-224 g LV Mass Index: 129.72 43-95/49-115 g/m2 LVOT Diam: 2.30 3.0+(-)1.3 cm 2D Systolic Function EF 4C: 59.10 >55% EF 2C: 59.20 >55% EF BiP: 58.90 >55% Mitral Valve MV Pk E: 0.48 MV PK A: 0.54 MV Decel Time: 217.00 E/A: 0.90 E'Lateral: 6.09 E'Medial: 6.31 E/E' Med: 7.60 E/E' Lat: 7.90 PHT: 63.00 MVA PHT: 3.49 Decel [place]: 2.21 Aortic Valve AoV Pk Caleb: 1.48 AoV Mn Caleb: 0.92 AoV VTI: 0.29 AoV Pk Grad: 9.00 Aov Mn Grad: 4.00 EMMY Cont.VTI: 2.91 LVOT LVOT Pk Caleb: 0.96 LVOT Mn Caleb: 0.61 LVOT VTI: 0.20 LVOT Pk Grad: 4.00 LVOT Mn Grad: 2.00 LVOT Diam: 2.30 LVOT Area: 4.15 Diastolic Function MV Pk E: 0.48 MV Pk A: 0.54 E/A: 0.90 E'Medial: 6.31 E/E' Med: 7.60 E' Laterial: 6.09 E/E' Lat: 7.90 Right Ventricle TAPSE (mm): 20.00 TVS' Caleb: 12.00 Tricuspid Valve TR Pk Caleb: 2.05 TR Pk Grad: 17.00 RA Press: 3.00 RVSP: 20.00 Great Vessels Aorta Ao Root-2D: 3.30 2.0-3.7 cm Ao Asc: 3.80 2.1-3.4 cm Pulmonary Valve PV Pk Caleb: 1.19 Peak PV Grad: 6.00 Updated in Other Vendor System with Status of Final Que Zapata MD electronically signed on 08/27/2023 6:28:39 AM with status of Final
== END ==
LOC: HO.CARD 08:47
PROVIDERS: PCP Internal Medicine; Visit Provider Internal Medicine
DX: R06.09 Other forms of dyspnea (principal)
CPT/HCPCS: 93005; 93306

== ENCOUNTER → 2023-08-26 08:59 | Outpatient (BNV) | payer BC, SELFPAY | PROVIDERS: PCP Internal Medicine; Visit Provider Internal Medicine Cardiovascular Disease | DX: I45.2 Bifascicular block (principal) | CPT/HCPCS: 93010; 93306 ==

== ENCOUNTER 2024-02-13 12:19 | Emergency (ER) | payer MEDICARE, SELFPAY ==
--- NOTE | ~2024-02-13 | XR_ITS ---
EXAMINATION: XR RIBS, RIGHT CLINICAL INFORMATION: Trauma. Right-sided rib pain. COMPARISON: None available. TECHNIQUE: Frontal view of chest 6 views of the right ribs were obtained. FINDINGS: Lungs are clear. No consolidation, pneumothorax, or pleural effusion. The cardiomediastinal silhouette and pulmonary vasculature are normal. There are displaced fractures of the right posterior lateral ninth and 10th ribs. Orthopedic plate and screw lower cervical spine. XR/XR ribs RT min 3V w CXR1V IMPRESSION: Displaced fractures of the right posterior lateral ninth and 10th ribs. There is no pneumothorax. Electronically signed by: Deshawn Fuentes MD 02/13/2024 03:30 PM EDT RP
[2024-02-13 12:35] VITALS: BP 107/61; BP 107/78; PULSE 89; RESP 22; O2SAT 98; O2SAT 99; BMI 27.6
--- NOTE | 2024-02-13 13:18 | ED.FALL ---
HPI - Fall General Chief Complaint: Fall Stated Complaint: FALL Time Seen by Provider: 02/13/24 13:08 Source: patient, family ( spouse) and EMS Mode of arrival: EMS Limitations: no limitations History of Present Illness ED Provider: DR. Mg HPI Narrative: 64-year-old male brought in by ambulance after he sustained a mechanical fall, patient tripped and fell down a 6 steps of stairs landing on his right flank area, no head injury, no LOC, no headache, no neck pain, no nausea, no vomiting, patient is complaining of right upper flank area pain pain is worse with movement and taking a deep breath. Related Data Home Medications ?Medication ?Instructions ?Recorded ?Confirmed mesalamine 400 mg tablet,delayed 800 mg PO BID 04/11/20 07/27/23 release sertraline 50 mg tablet 50 mg PO DAILY 04/11/20 07/27/23 tamsulosin 0.4 mg capsule 0.4 mg PO DAILY 04/11/20 07/27/23 atorvastatin 10 mg tablet 10 mg PO DAILY 04/12/22 07/27/23 diazepam 5 mg tablet 5 mg PO DAILY PRN Anxiety 07/27/23 07/27/23 Previous Rx's ?Medication ?Instructions ?Recorded naproxen 500 mg tablet 500 mg PO BID 30 days #60 tabs 04/11/20 hydromorphone 2 mg tablet 2 mg PO .q 12 h PRN pain #20 tabs 02/13/24 (Dilaudid) Allergies Allergy/AdvReac Type Severity Reaction Status Date / Time No Known Allergies Allergy Verified 02/13/24 12:36 Review of Systems Review of Systems: All other systems are reviewed and are negative Constitutional: Reports as per HPI and Reports no additional constitutional complaints Eyes: Reports as per HPI and Reports no additional eye complaints Reports system reviewed and no additional complaints, except as documented Cardiovascular: Reports as per HPI and Reports no additional cardiovascular complaints Respiratory: Reports as per HPI and Reports no additional respiratory complaints Gastrointestinal: Reports as per HPI and Reports no additional gastrointestinal complaints Genitourinary: Reports no additional female genitourinary complaints Musculoskeletal: Reports no additional musculoskeletal complaints Skin/Breast: Reports system reviewed and no additional complaints, except as docu Psychiatric: Reports no additional psychiatric complaints Endocrine: Reports no additional endocrine complaints Hematologic/Lymphatic: Reports no additional hematologic/lymphatic complaints Allergic/Immunologic: Reports no additional allergic/immunologic complaints Reports system reviewed and no additional complaints, except as documented and Reports Abnormal speech present [facility] Past Medical History Medical History RBBB (right bundle branch block) Prostate cancer Anxiety Angioleiomyoma Reactive depression BPH (benign prostatic hyperplasia) Varicose veins of anus or rectum Herpes dermatitis Cervical radiculopathy Lumbar disc disease Ulcerative colitis Surgical History Hx of shoulder surgery Hx of neck surgery History of colonoscopy [place] teeth extracted History of spinal fusion Social History Social History Alcohol intake: current Alcohol intake frequency: holidays/special occasions only Patient Tobacco Use Status: Never used Tobacco Smoked in Last 30 Days: No Use of substances other than those prescribed or required for medical reasons: No Advance Directives: No Advance Directives Information Provided: No 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 Blood pressure elevated. Heart rate normal. Respiratory rate normal. Temperature normal. Oxygen saturation normal. Appearance: Alert. Oriented X3. No acute distress. Head: Normal external exam. Normocephalic. Atraumatic. No Harrison signs noted. No raccoon eyes noted Eyes: PERRLA. EOMI. Conjunctiva and sclera normal. Eyelids normal. ENT: TM's Normal. Pharynx normal. Uvula midline. Moist mucous membranes. No trismus noted. No drooling noted. No muffled voice noted. Neck: Normal inspection. Neck supple. FROM. No adenopathy. Thyroid Normal. No meningeal signs. No neck mass noted. CVS: Normal heart rate and rhythm. Heart sound normal. No murmurs noted. Pulses normal throughout. Respiratory: No respiratory distress. Painless inspiration. Breath sounds normal. No wheezes/rales/rhonchi noted. Right lower chest rib pain. No accessory muscle usage noted or decreased air movement noted. Abdomen: Soft and nontender. Bowel sounds normal in all 4 quadrants. No distention noted. No organomegaly noted. No visible injury noted. Back: right CVA tenderness. Full range of motion noted. Skin: Skin warm and dry. Normal skin color. Normal skin turgor. No rashes/lesions/lacerations noted. Extremities: No lower extremity edema. Extremities exhibit normal range of motion. Extremities nontender. Neuro: Oriented X 3. Cranial nerve exam: II-XII are grossly intact No motor deficit. No sensory deficit. Reflexes normal. Course Reevaluation(s) Reevaluation #1: Right 9th and 10th rib fracture with no pneumothorax, patient is in pain given Dilaudid controlling his pain better, patient was provided incentive spirometer with training and was instructed to do the breathing exercise frequently to wind pulmonary atelectasis. Will discharge the patient on Dilaudid p.r.n. for pain. Time: 15:55 Medications Administered Discontinued Medications Generic Name Dose Route Start Last Admin Trade Name Kareem PRN Reason Stop Dose Admin Hydromorphone HCl 1 mg 02/13/24 13:14 02/13/24 13:22 Hydromorphone Hcl 1 Mg/Ml Syringe IVPUSH 02/13/24 13:15 1 mg ONCE ONE Administration Protocol Hydromorphone HCl 1 mg 02/13/24 15:45 02/13/24 15:52 Hydromorphone Hcl 1 Mg/Ml Syringe IVPUSH 02/13/24 15:46 1 mg ONCE ONE Administration Protocol Ketorolac Tromethamine 15 mg 02/13/24 13:14 02/13/24 13:22 Ketorolac Tromethamine 15 Mg/Ml Vial IVPUSH 02/13/24 13:15 15 mg ONCE ONE Administration Medical Decision Making Differential Diagnosis Differential Diagnoses: The differential diagnosis associated with the presentation includes ( rib fracture, chest contusion, pneumonia.) Independent Interpretation I performed an independent interpretation of an: Plain X-Ray ( chest:Displaced fractures of the right posterior lateral ninth and 10th ribs. There is no pneumothorax. ) Radiology Impression Discussion of test interpretation with radiology: I have reviewed the radiologist's reading. Discharge Plan Discharge Clinical Impression: Rib fractures Patient Disposition: Home, Self-Care Instructions: Rib Fracture (ED) Additional Instructions: return for difficulty breathing or worsening of the pain. Prescriptions: New hydromorphone [Dilaudid] 2 mg tablet 2 mg PO .q 12 h PRN (Reason: pain) Qty: 20 0RF Rx Instructions: Partial Fill upon patient request. No Action diazepam 5 mg tablet 5 mg PO DAILY PRN (Reason: Anxiety) atorvastatin 10 mg tablet 10 mg PO DAILY tamsulosin 0.4 mg capsule 0.4 mg PO DAILY mesalamine 400 mg tablet,delayed release (DR/EC) 800 mg PO BID sertraline 50 mg tablet 50 mg PO DAILY naproxen 500 mg tablet 500 mg PO BID 30 Days Qty: 60 3RF Print Language: Turkmen
[2024-02-13] MEDS: HYDROmorphone HCl 1 MG/ML SYRINGE IVPUSH ×2 (13:22→15:52)
[2024-02-13] MEDS: Ketorolac Tromethamine 15 MG/ML VIAL IVPUSH (13:22)
[2024-02-13 16:07] VITALS: BP 110/68; PULSE 75; RESP 18; TEMP 36.7; O2SAT 99
== END 2024-02-13 16:08 | disposition home or self-care (01) ==
PROVIDERS: Emergency Provider Emergency Medicine
DX: S22.41XA Multiple fractures of ribs, right side, initial encounter for closed fracture (principal); R07.81 Pleurodynia; W10.9XXA Fall (on) (from) unspecified stairs and steps, initial encounter; Y93.89 Activity, other specified; Y92.89 Other specified places as the place of occurrence of the external cause; Y99.8 Other external cause status; Z79.899 Other long term (current) drug therapy
CPT/HCPCS: 71101; 96374; 96375; 96376; 99284; J1171; J1885

== ENCOUNTER 2025-03-04 13:12 | Outpatient (AMB) | payer MEDICARE, SELFPAY ==
--- NOTE | 2025-03-04 13:12 | MHC.PC.OV ---
Vital Signs 03/04/25 13:15 Height 5 ft 11.26 in Weight 195 lb BMI 27.0 BP 107/64 Blood Pressure Location Rt brachial Position Sitting Respiration 14 Pulse 84 Pulse Source Pulse Oximeter Temp 97.9 F Temp Source Temporal Artery Scan Pulse Oximetry (%) 97 Oxygen Delivery Method Room Air Intake Visit Reasons: Establish Care/ Dr. Alvarez/ TIM Trackless Trolley Driver Required: No Accompanied by: Self / Same As Patient Allergies No Known Allergies Allergy (Verified 03/04/25 13:13) Tobacco use date assessed: 03/04/25 Fall risk assessment: 1 Fall in past year Last assessed Fall Risk: 03/04/25 Dental Screening Dental Screen Date: 03/04/25 Did you have a dental visit in the last 12 months?: Yes Did you have a dental problem in the last 6 months where you did not have access to dental care?: No Was dental information given to patient?: Patient has dentist [facility] Medical History (Updated 03/04/25 @ 14:01 by Otf Ambrosio MD) RBBB (right bundle branch block) Prostate cancer Anxiety Angioleiomyoma Reactive depression BPH (benign prostatic hyperplasia) Varicose veins of anus or rectum Herpes dermatitis Cervical radiculopathy Lumbar disc disease Ulcerative colitis Surgical History Hx of shoulder surgery Hx of neck surgery History of colonoscopy (~07/29/23) [place] teeth extracted History of spinal fusion Social History (Updated 03/04/25 @ 13:20 by SHERRELL Cha) Housing: House Alcohol intake: current Alcohol intake frequency: holidays/special occasions only Patient Tobacco Use Status: Never used Tobacco service: No Current occupational status: employed Cognitive needs: No Hearing needs: No Vision needs: No Questionnaire PHQ-9 Over the last 2 weeks, how often have you been bothered by any of the following problems? 1. Little interest or pleasure in doing things: not at all 2. Feeling down, depressed, or hopeless: not at all 3. Trouble falling or staying asleep, or sleeping too much: not at all 4. Feeling tired or having little energy: not at all 5. Poor appetite or overeating: not at all 6. Feeling bad about yourself - or that you are a failure or have let yourself or your family down: not at all 7. Trouble concentrating on things, such as reading the newspaper or watching television: not at all 8. Moving or speaking so slowly that other people could have noticed. Or the opposite - being so fidgety or restless that you have been moving around a lot more than usual: not at all 9. Thoughts that you would be better off or of hurting yourself in some way: not at all Total score: 0 Source: Developed by Drs. Dieudonne Cloud, Maritza Beryr, Bassem Oswald and colleagues, with an educational daisy from [employer]. Thrive Questionnaire Date Thrive assessed: 03/04/25 I am a: Patient What is your living situation today?: I have a steady place to live Within the past 12 months, did the food you bought not last and you didn't have the money to get more?: Never true Within the past 12 months, did you worry whether your food would run out before you got money to buy more?: Never true Do you have trouble paying for medicines?: No Do you have trouble getting transportation to medical appointments?: No Do you have trouble paying your heating and electricity bill?: No Do you have trouble taking care of your child, family member or friend?: No Do you have trouble with day-to-day activities such as bathing, preparing meals, shopping, managing finances, etc.?: No Are you currently unemployed and looking for a job?: No Are you interested in more education?: No Please select the resources that you would like help with: None THRIVE Score: 0 AUDIT C Alcohol Use Questionnaire (AUDIT-C) 1. How often do you have a drink containing alcohol?: Monthly or less 2. How many drinks containing alcohol do you have on a typical day when you are drinking?: 1 or 2 3. How often do you have six or more drinks on one occasion?: Never Total Score: 1 KEIRY-7 AMB Questionnaire KEIRY-7 Date KEIRY - 7 assessed: 03/04/25 Feeling nervous, anxious, or on edge: 0 = Not at all Not being able to stop or control worryin = Not at all Worrying too much about different things: 0 = Not at all Trouble relaxin = Not at all Being so restless that it is hard to sit still: 0 = Not at all Becoming easily annoyed or irritable: 0 = Not at all Feeling afraid as if something awful might happen: 0 = Not at all Total KEIRY-7 score (0-4 normal; 5-9 mild; 10-14 moderate; 15-21 severe): 0 Source: Developed by Drs. Dieudonne Cloud, Maritza Berry, Bassem Oswald and colleagues, with an educational daisy from [employer]. Physical exam (Primary Care) Vital Signs: Last Vital Signs Temp 97.9 F 03/04/25 13:15 Pulse 84 03/04/25 13:15 Resp 14 03/04/25 13:15 BP 107/64 03/04/25 13:15 Pulse Ox 97 03/04/25 13:15 Oxygen Delivery Method Room Air 03/04/25 13:15 BMI result Body Mass Index 27.0 Tobacco/Smoking Status: Tobacco use Status Tobacco use date assessed 03/04/25 03/04/25 13:14 Patient Tobacco Use Status Never used Tobacco 03/04/25 13:20 PHQ-9: PHQ-9 Score PHQ-9: Total score 0 03/04/25 13:14 Thrive Assessment: Date of Thrive Assessment Date Thrive assessed 03/04/25 03/04/25 13:14 Office Procedures Flu Questionnaire Does the patient have a severe egg allergy?: No Does the patient have severe life threatening allergies?: No Does the patient have a fever or illness today?: No Has the patient ever had Guillain-[place] Syndrome?: No Has the patient ever had any past reaction to a flu shot?: No Immunizations Fluarix [id number] (PF) 45 mcg (15 mcg x 3)/0.5 mL IM syringe Performing Provider: Otf Ambrosio MD [facility] Documented (not given) by: SHERRELL Cha on 03/04/25 13:21 Reason Not Given: Patient Refused Coding Level of Care Code New Pt Level 4 (74687) Complex EM visit Add On G2211 Diagnoses Ulcerative colitis K51.90 Assessment & Plan Assessment & Plan (1) Ulcerative colitis: Code(s): K51.90 - Ulcerative colitis, unspecified, without complications Category: Medical Plan: Stable on meds Plan History of Present Illness - The patient is a 65-year-old male presenting for a new patient visit, primarily concerned about persistent dyspnea and decreased endurance for the past year. - Approximately one year ago, in January, the patient sustained a fall down his cellar stairs, resulting in two snapped ribs. - Initially, he was sent home from the hospital but returned to the emergency room 8 days later after an episode of syncope and experiencing chest pain. - A CT scan revealed his chest cavity was three-quarters full of blood, with a completely collapsed right lung and a partially collapsed left lung, a condition described as a massive right hemothorax. - Despite the severity of his condition, his vitals were stable. - He underwent placement of a chest tube, which drained 2000 cc of blood, and was hospitalized for six days. - He was readmitted for a second chest tube and administration of a thrombolytic agent after an attempt to catheterize and remove clotted blood was unsuccessful. - This intervention was successful, and he avoided thoracic surgery. - He spent a total of 12 days in the hospital over the two admissions. - Since the injury, he has experienced persistent dyspnea on exertion and fatigue, describing himself as having no wind, which has not improved over the past year. - He was referred to a pulmonary exercise program but was told by the provider there that his current gym regimen was more intensive. - He reports he has never smoked and believes his healthy lungs were the reason he survived the initial trauma. - The patient also reports recent increased fatigue following a left rotator cuff surgery last week, for which he was weaned off opioid pain medication. - His past medical history is significant for ulcerative colitis, managed by a circulator for approximately 30 years, hypercholesterolemia, and benign prostatic hyperplasia. - Current medications include sertraline, a statin, tamsulosin, and mesalamine 1000 mg twice daily by mouth for colitis. Social History - Tobacco Use: Patient denies ever smoking. - Exercise: Patient reports he goes to the gym a lot and regained his strength quickly after his hospitalization. 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 Review of Systems - Constitutional: Reports fatigue, which has been chronic for a year and acutely worsened after recent surgery. - Respiratory: Reports chronic dyspnea on exertion for the past year, feeling winded and having to post and puff with minimal activity such as climbing stairs. - Cardiovascular: Denies current chest pain. - Genitourinary: Reports taking medication to assist with urination. Physical Exam General: Cooperative and healthy appearing Nutritional Appearance: Well nourished Orientation/consciousness: Patient oriented x3 Limitations: No limitations Head: Normal to inspection General: Appearance normal, both eyes and all related structures Neck: Normal visual inspection Chest: Normal palpation of entire chest wall Respiratory: Patient reports feeling winded and tired, with shortness of breath and decreased endurance. History of pneumothorax with collapsed lungs, currently experiencing fatigue and slight difficulty breathing. ormal respiratory effort Neurology: Patient oriented x3 Results - Imaging: - CT of the chest (March of last year): Mentioned. - Chest x-ray (July): Reported as okay. Plan - I will order routine baseline blood work to evaluate for other causes of fatigue and dyspnea, such as anemia or thyroid dysfunction, which can be triggered by major injuries. - A referral will be placed for the patient to see a screening technician for further evaluation of his persistent respiratory symptoms and to establish a baseline. - The patient was reassured that his ability to undergo general anesthesia for his recent shoulder surgery is a positive indicator of his lung function. - Plan to follow up in 3 months but advised the patient to contact the office sooner if any problems arise. Discussion Notes I have discussed with the patient his primary concerns of persistent fatigue and shortness of breath, which he feels represent a significant decline in his health since his traumatic chest injury a year ago. I explained that while his past imaging has been reassuring, we need to investigate other potential causes for his symptoms. I outlined the plan to start with baseline blood work to rule out conditions like anemia or thyroid issues. We also discussed a referral to a screening technician for a specialized evaluation of his lung function. I provided reassurance by noting that his clearance for general anesthesia for his recent rotator cuff surgery is a good sign regarding his pulmonary health. The patient agreed with the plan for blood work, a pulmonology consult, and a follow-up in three months. Patient Instructions - Please go to the lab in [place] on [address] to have the ordered blood work done. - We will send a referral for you to see a lung specialist (screening technician) to further check on your breathing. - Please schedule a follow-up appointment to see me in about three months. - If you have any new or worsening problems before your next appointment, please call our office. Orders: Orders Basic Metabolic Panel Today K51.90 - Ulcerative colitis, unspecified, without complications Complete Blood Count no Diff Today K51.90 - Ulcerative colitis, unspecified, without complications Thyroid Stimulating Hormone Today K51.90 - Ulcerative colitis, unspecified, without complications UA and rflx microscopic Today K51.90 - Ulcerative colitis, unspecified, without complications Influenza [id number] Immunization Today Z23 - Encounter for immunization Lipid Panel Today K51.90 - Ulcerative colitis, unspecified, without complications Liver Panel Today K51.90 - Ulcerative colitis, unspecified, without complications Prostate Specific Antigen Scr Today K51.90 - Ulcerative colitis, unspecified, without complications Medications: New mesalamine ER 1,000 mg (2 x 500 mg) PO BID 90 caps 0RF Discontinued hydromorphone (Dilaudid) Partial Fill upon patient request. Discontinued Reason: Doctor's Order 2 mg PO .q 12 h PRN 20 tabs 0RF pain
[2025-03-04 13:15] VITALS: BP 107/64; PULSE 84; RESP 14; TEMP 36.6; O2SAT 97; BMI 27.0
== END 2025-03-04 14:13 | disposition home or self-care (01) ==
LOC: HO.HMCSH 13:12
PROVIDERS: PCP Physician Assistant Medical; Visit Provider Internal Medicine
DX: K51.90 Ulcerative colitis, unspecified, without complications (principal); Z23 Encounter for immunization

== ENCOUNTER → 2025-03-04 13:12 | Outpatient (BNVA) | payer MEDICARE, SELFPAY | PROVIDERS: PCP Physician Assistant Medical; Visit Provider Internal Medicine | DX: Z76.89 Persons encountering health services in other specified circumstances (principal); K51.90 Ulcerative colitis, unspecified, without complications; R53.83 Other fatigue; R06.02 Shortness of breath; E78.00 Pure hypercholesterolemia, unspecified; N40.0 Benign prostatic hyperplasia without lower urinary tract symptoms; Z13.31 Encounter for screening for depression; Z13.39 Encounter for screening examination for other mental health and behavioral disorders | CPT/HCPCS: 90471; 96127; 99202 ==

== ENCOUNTER 2025-03-05 06:03 | Outpatient (REF) | payer MEDICARE, SELFPAY ==
--- OUTSIDE RECORDS SUMMARY | 2025-03-05 06:06 | XMS_ITS | Clinical Summary ---
Author Organization [facility] Address [address] [place] [address] Phone Care Team Providers Care Welfare Manager Name Role Phone Dieudonne Luna DO Primary Care Provider [phone] Allergies No known active allergies Medications tamsulosin (FLOMAX) 0.4 mg Cap Take 0.4 mg by mouth daily. Active mesalamine (ASACOL ORAL) Take 400 mg by mouth daily. Active sertraline (ZOLOFT) 100 MG tablet Take 100 mg by mouth daily. Active atorvastatin (LIPITOR) 10 MG tablet Take 10 mg by mouth daily. Active sildenafiL (VIAGRA) 50 mg tablet Take 50 mg by mouth daily as needed for erectile dysfunction. Active Active Problems Problem Noted Date Diagnosed Date Prostate cancer 06/11/2021 Family History Medical History Relation Comments Cancer Brother Cancer Son Relation Status Comments Brother Alive Son Alive Social History Tobacco Use Types Packs/Day Years Used Date Smoking Tobacco: Never Smokeless Tobacco: Never Education Answer Date Recorded Are you interested in more education? Not on momo e 08/26/2022 Are you concerned about learning? Not on file 08/26/2022 No 08/26/2022 No 08/26/2022 Digital Access Answer Date Recorded No 09/27/2022 No 09/27/2022 No 09/27/2022 Reliable internet access at home? Not on file 09/27/2022 Device with a working camera? Not on file Sex and Gender Information Value Date Recorded Sex Assigned at Not on file Legal Sex Male 7:52 PM EST Gender Identity Not on file Sexual Orientation Not on file Last Filed Vital Signs Vital Sign Reading Time Taken Comments Blood Pressure 126/80 09/14/2021 8:28 AM EDT Pulse 89 09/14/2021 8:28 AM EDT Temperature - - Respiratory Rate - - Oxygen Saturation 97% 09/14/2021 8:28 AM EDT Inhaled Oxygen Concentration - - Weight 94.1 kg (207 lb 6.4 oz) 09/14/2021 8:28 A M EDT Height - - Body Mass Index - - Plan of Treatment Health Maintenance Due Date Last Done Comments Adult Td,Tdap Booster 1958 LIPID PANEL 1958 DEPRESSION SCREENING 1970 HEPATITIS C SCREENING 01/26/1976 PNEUMOCOCCAL VACCINES (50+ years) (1 of 2 - PCV) 1977 ZOSTER VACCINES (1 of 2) 1977 COLOGUARD 2003 COLONOSCOPY 2003 COLORECTAL CANCER SCREENING 2003 FIT TEST 2003 FOBT 2003 SIGMOIDOSCOPY 2003 VIRTUAL COLONOSCOPY 2003 INFLUENZA VACCINE (#1) 2024 0, 05/04/2019 COVID-19 VACCINE (3 - 2024-2 6 season) 2024 05/18/2021, 04/27/2021 RSV VACCINE (1 - 1-dose 75+ series) 2033 SMOKING STATUS SCREENING (On ce After 26 Yrs) Completed 06/05/2021 HEPATITIS A VACCINES Aged Out No long er eligible based on patient's age to complete this topic HIB VACCINES Aged Out No longer eligi ble based on patient's age to complete this topic MENINGOCOCCAL VACCINES (ACWY) Aged Out No longer eligible based on patient's age to complete this topic MENINGOCOCCAL VACCINES (B) Aged Out N o longer eligible based on patient's age to complete this topic Medical Devices Not on file Insurance MEDICARE PART A & B [employer] Newsletter [employer] MEDEX SUPPLEMENT MEDICARE PART A & B [employer] MEDEX SUPPLEMENT MEDICARE PART A & B Member Subscriber Plan / Payer (Ef fective 2023-) Name:Pedro Luis Maradiaga Member ID:[id number] Relation to Subscriber:Self Name:Pedro Luis Maradiaga Subscriber ID:[id number] Payer ID:[id number] Group ID:Not on file Type:Medicare Address: [employer] [address] [place] [id number] [employer] MEDEX SUPPLEMENT MEDICARE PART A & B Member Subscriber Plan / Payer ( fective 2023-) Name:Pedro Luis Maradiaga Member ID:[id number] Relation to Subscriber:Self Name:Pedro Luis Maradiaga Subscriber ID:[id number] Payer ID:[id number] Group ID:Not on file Type:Medicare Address: [employer] [address] [place] [phone] BLUE CROSS MEDEX SUPPLEMENT MEDICARE PART A & B Member Subscriber Plan / Payer ( fective 2023-) Name:Pedro Luis Maradiaga Member ID:[id number] Relation to Subscriber:Self Name:MaradiagaPedro Luis monteiro Subscriber ID:[id number] Payer ID:[id number] Group ID:Not on file Type:Medicare Address: [employer] [address] [place] [address] [employer] SUPPLEMENT MEDICARE PART A & B Member Subscriber Plan / Payer ( fective 2023-) Name:Pedro Luis Maradiaga Member ID:[id number] Relation to Subscriber:Self Name:MaradiagaPedro Luis Subscriber ID:[id number] Payer ID:[id number] Group ID:Not on file Type:Medicare Address: [employer] [address] [place], [place] [id number] [employer] SUPPLEMENT Care Teams Welfare Manager Relationship Specialty Start Date End Date Dieudonne Luna DO [address] [place] [id number] PCP - General 05/26/21 Additional Source Comments The information contained in this document represents components of the legal health record. It is not the complete legal health record.[facility]
--- OUTSIDE RECORDS SUMMARY | 2025-03-05 06:07 | XMS_ITS | Encounter Summary ---
Author Organization [facility] Address [address] [place] [phone] Phone Care Team Providers Care Awning Craftsman Name Role Phone Dieudonne Luna DO Primary Care Provider [phone] Encounter Details Date Type Department Care Team (Late st Contact Info) Description 06/02/2021 Ancillary Orders [facility],Outside Imaging [address] [place] [address] System, Provider Not In, [place] [address] Social History Tobacco Use Types Packs/Day Years Used Date Smoking Tobacco: Never Assessed Sex and Gender Information Value Date Recorded Sex Assigned at Not on file Legal Sex Male 7:52 PM EST Gender Identity Not on file Sexual Orientation Not on file documented as of this encounter Plan of Treatment Not on file documented as of this encounter Results * MRI Pelvis (Soft Tissue) Outside (No Interpretation) (03/13/2021 12:00 AM EST) Narrative SYSTEMGENERATED, DOCUMENTATION - 06/02/2021 2:38 PM EST This study is for PACS storage only and not for interpretation. us Provider Not In System PhD IMG OUTSIDE IMAGING W /OUT INTERPRETATION Final Result documented in this encounter Visit Diagnoses Not on filedocumented in this encounter Care Teams Awning Craftsman Relationship Specialty Start Date End Date Dieudonne Luna DO [address] [place] [id number] PCP - General 05/26/21 documented as of this encounter Additional Source Comments The information contained in this document represents components of the legal health record. It is not the complete legal health record.[facility]
--- OUTSIDE RECORDS SUMMARY | 2025-03-05 06:07 | XMS_ITS | Clinical Summary ---
Author Organization [facility] Address [address] [place] [address] Phone Care Team Providers Care Nutrition Services Worker Name Role Phone Dieudonne Luna DO Primary Care Provider [phone] Social History Tobacco Use Types Packs/Day Years Used Date Smoking Tobacco: Never Assessed Sex and Gender Information Value Date Recorded Sex Assigned at Not on file Legal Sex Male 12:51 AM EST Gender Identity Not on file Sexual Orientation Not on file Plan of Treatment Health Maintenance Due Date Last Done Comments Colorectal Cancer Screening: Colonoscopy 1958 DTaP,Tdap,and Td Vaccines (1 - Tdap) 1977 Pneumococcal Vaccine: 50+ Ye ars (1 of 1 - PCV) 01/26/2008 Zoster Vaccines (1 of 2) 01/26/2008 Depression Screening 05/02/2024 Abdominal Aortic Aneurysm (A AA) Screen 10/11/2024 Cholesterol Screening (Lipid Panel) 10/11/2024 Falls Risk Assessment 10/11/2024 Hepatitis C Screening 10/11/2024 Medicare Annual Wellness Visit 10/11/2024 Social Influencers of Health Screening 10/11/2024 COVID-19 Vaccine (1 - 2023-2 5 season) 2024 Influenza Vaccine (#1) 2024 RSV Immunization Adult Patie nts (1 - 1-dose 75+ series) 2033 HIB Vaccines Aged Out No longer eligi ble based on patient's age to complete this topic HPV Vaccines Aged Out No longer eligi ble based on patient's age to complete this topic Hepatitis A Vaccines Aged Out No long er eligible based on patient's age to complete this topic Hepatitis B Vaccines Aged Out No long er eligible based on patient's age to complete this topic IPV Vaccines Aged Out No longer eligi ble based on patient's age to complete this topic MMR Vaccines Aged Out No longer eligi ble based on patient's age to complete this topic Meningococcal ACWY Vaccine Aged Out N o longer eligible based on patient's age to complete this topic Meningococcal B Vaccine Aged Out No l onger eligible based on patient's age to complete this topic RSV Immunization Patients Un onel 20 months Aged Out No longer eligible b ased on patient's age to complete this topic Varicella Vaccines Aged Out No longer eligible based on patient's age to complete this topic Insurance MEDICARE [facility] Care Teams Nutrition Services Worker Relationship Specialty Start Date End Date Dieudonne Luna DO [address] [place] [phone] PCP - General Internal Medicine 11/30/24
--- OUTSIDE RECORDS SUMMARY | 2025-03-05 06:07 | XMS_ITS | Encounter Summary ---
Author Organization [facility] Address [address] [place] [phone] Care Team Providers Care Armored Cable Machine Operator Name Role Phone Dieudonne Luna DO Primary Care Provider [phone] Encounter Details Date Type Department Care Team (Late st Contact Info) Description 11/30/2024 Lab Requisition [facility] - Main Lab 299 [facility] [place] [address] Musa Bassett MD 364 [facility] 103 [place] [address] Urinary tract infection, site not specified Social History Tobacco Use Types Packs/Day Years Used Date Smoking Tobacco: Never Assessed Sex and Gender Information Value Date Recorded Sex Assigned at Not on file Legal Sex Male 12:51 AM EST Gender Identity Not on file Sexual Orientation Not on file documented as of this encounter Plan of Treatment Not on file documented as of this encounter Procedures Procedure Name Priority Date/Time Associated Diagnosis Comments BACTERIAL IDENTIFICATION AND SUSCEPTIBILITY, AEROBIC Routine 11/29/2024 11:46 AM EDT Urinary tract infection, site not specified documented in this encounter Results * (ABNORMAL) Bacterial identification and susceptibility, aerobic (11/29/2024 11:46 AM EDT) Culture, Bacterial ID and Sensitivity Escherichia coli(A) NORMA 12/01/2024 8:08 AM EDT [facility] ([facility]) [facility] Other Urine specimen from urethra / Unknown Non-blood Collection / Unknown 11/29/2024 11:46 AM EDT 11/30/2024 10:18 AM EDT Narrative Organism Antibiotic Method Susceptibility Escherichia coli Amoxicillin/Clavulanate NORMA 4 ug/ml: Susceptible Escherichia coli Ampicillin/Sulbactam NORMA >=32 ug/ml: Resistant Escherichia coli Piperacillin/Tazobactam NORMA <=4 ug/ml: Susceptible Escherichia coli Cefazolin (Urine) NORMA 2 ug/ml: Susceptible Escherichia coli Cefoxitin NORMA <=4 ug/ml: Susceptible Escherichia coli Ceftazidime NORMA <=0.5 ug/ml: Susceptible Escherichia coli Ceftriaxone NORMA <=0.25 ug/ml: Susceptible Escherichia coli Cefepime NORMA <=0.12 ug/ml: Susceptible Escherichia coli Meropenem NORMA <=0.25 ug/ml: Susceptible Escherichia coli Amikacin NORMA 2 ug/ml: Susceptible Escherichia coli Gentamicin NORMA <=1 ug/ml: Susceptible Escherichia coli Ciprofloxacin NORMA <=0.06 ug/ml: Susceptible Escherichia coli Levofloxacin NORMA <=0.12 ug/ml: Susceptible Escherichia coli Nitrofurantoin NORMA <=16 ug/ml: Susceptible Escherichia coli Trimethoprim/Sulfamethoxazole NORMA <=20 ug/ml: Susceptible us Musa Bassett MD LAB MICROBIOLOGY - GENERAL ORDER CK Final Result [facility] ([facility]) HOSPITAL LAB [address] [place] [address], documented in this encounter Visit Diagnoses Diagnosis Urinary tract infection, site not specified documented in this encounter Care Teams Armored Cable Machine Operator Relationship Specialty Start Date End Date Dieudonne Luna DO [address] [place] [phone] PCP - General Internal Medicine 11/30/24 documented as of this encounter
--- OUTSIDE RECORDS SUMMARY | 2025-03-05 06:07 | XMS_ITS | Encounter Summary ---
Author Organization [facility] Address [address] [place] [phone] Care Team Providers Care Airplane Tube Builder Name Role Phone Dieudonne Luna DO Primary Care Provider [phone] Encounter Details Date Type Department Care Team (Late st Contact Info) Description 10/10/2024 Lab Requisition [facility] - Main Lab 299 [facility] [place] [address] Delmer Soto PA [address] [facility] 103 [place] [address] Malignant neoplasm of prostate ([facility]/HCC V24, CMS/[facility] V28) Social History Tobacco Use Types Packs/Day Years [...] Procedure Name Priority Date/Time Associated Diagnosis Comments PROSTATE SPECIFIC ANTIGEN DIAGNOSTIC Routine 10/10/2024 10:18 AM EDT Malignant neoplasm of prostate (CMS/HCC V24, CMS/HCC V28) documented in this encounter Results * Prostate specific antigen diagnostic (10/10/2024 10:18 AM EDT) PSA 0.30 0.00 - 4.00 ng/mL LAB CHEMISTRY METHOD 10/10/2024 3:59 PM EDT [facility] ([facility]) [facility] LAB Blood Venous blood specimen / Unknown 10/10/2024 10:18 AM EDT 10/10/2024 1:31 PM EDT Narrative [facility] ([facility] - 10/10/2024 3:59 PM EDT The Siemens Advia Centaur Chemiluminescent Immunoassay is used. Results obtained with different assay methods or kits cannot be used interchangeably. Results cannot be interpreted as absolute evidence of the presence or absence of malignant disease. us Delmer BONILLA LAB BLOOD ORDERABLES Final Resul t [facility] [address] [place] [address], documented in this encounter Visit Diagnoses Diagnosis Malignant neoplasm of prostate (CMS/HCC V24, CMS/HCC V28) Malignant neoplasm of prostate documented in this encounter Care Teams Airplane Tube Builder Relationship Specialty Start Date End Date Dieudonne Luna DO [address] [place] [phone] PCP - General Internal Medicine 11/30/24 documented as of this encounter
[2025-03-05 10:40] LABS: Appearance Urine Clear; Glucose Urine UA Negative (Negative); PH 7.0 (5.0-9.0); Specific Gravity - Urine 1.020 (1.005-1.025); UMIC TRIGGER UA YES
[2025-03-05 10:43] LABS: Hematocrit 44.8 % (42.0-52.0); Hemoglobin 14.9 g/dl (14.0-18.0); Mean Corpuscular HGB Conc 33.3 g/dl (31.0-36.0); Mean Corpuscular Hemoglobin 29.9 pg (27.0-33.0); Mean Corpuscular Volume 90.0 fL (80.0-98.0); NRBC Abs Auto 0.000 X10*3/uL (0.0-0.012); NRBC Pct Auto 0.0 /100WBC (0.0-0.2); Platelet Count 255 X10*3/uL (160-400); Red Blood Count 4.98 X10*6/uL (4.60-5.80); White Blood Count 5.9 X10*3/uL (4.8-10.8)
[2025-03-05 11:05] LABS: Alanine Aminotransferase 32 U/L (0-40); Albumin Level 4.5 g/dL (3.5-5.0); Alkaline Phosphatase 115 U/L (39-117); Anion Gap 11 (12-20); Aspartate Amino Transferase 39 U/L (5-37); Blood Urea Nitrogen 24 mg/dL (9-16); Calcium 9.4 mg/dL (8.4-10.2); Carbon Dioxide 26 mmol/L (22-29); Chloride 109 mmol/L (96-108); Cholesterol 169 mg/dL (<200); Estimated Glomerular Filt Rate > 60; HDL Cholesterol 48 mg/dL (>40); Potassium 4.3 mmol/L (3.3-5.1); Sodium 142 mmol/L (135-145); Total Protein 7.1 g/dL (6.5-8.0); Triglycerides 111 mg/dL (<150)
[2025-03-05 11:25] LABS: Thyroid Stimulating Hormone 1.58 uIU/mL (0.32-4.0)
== END 2025-03-05 06:04 | disposition home or self-care (01) ==
LOC: HO.HMGCLDS 06:03
PROVIDERS: PCP Internal Medicine; Visit Provider Internal Medicine
DX: K51.90 Ulcerative colitis, unspecified, without complications (principal); Z12.5 Encounter for screening for malignant neoplasm of prostate; Z13.29 Encounter for screening for other suspected endocrine disorder; Z13.6 Encounter for screening for cardiovascular disorders
CPT/HCPCS: 36415; 80048; 80061; 80076; 81001; 84153; 84443; 85027

== ENCOUNTER 2025-04-29 12:07 | Outpatient (REF) | payer MEDICARE, SELFPAY ==
--- NOTE | ~2025-04-29 | XR_ITS ---
EXAMINATION: XR CHEST 2 VIEWS HISTORY: R05.9 - Cough, unspecified COMPARISON: Comparison is made with the prior examination dated 02/13/2024. FINDINGS: PA and lateral views of the chest are submitted. The lungs are expanded and clear. There is no pleural effusion, pneumothorax, or pulmonary vascular congestion. The heart is normal in size. The bones are intact. A portion of a fusion plate is seen in the lower cervical spine. XR/XR chest 2V IMPRESSION: No acute cardiopulmonary abnormality. Electronically signed by: Dieudonne Martinez MD 04/29/2025 01:49 PM EST
[2025-04-29 19:02] LABS: Resp Syncy Virus RNA Qual PCR POSITIVE (Negative); SARS COV2 PCR INHOUSE NEGATIVE (Negative)
== END 2025-04-29 12:08 | disposition home or self-care (01) ==
LOC: HO.HMGCX 12:07
PROVIDERS: PCP Internal Medicine; Visit Provider Nurse Practitioner Family
DX: R05.9 Cough, unspecified (principal); J06.9 Acute upper respiratory infection, unspecified
CPT/HCPCS: 71046; 87637; 99212

== ENCOUNTER 2025-04-29 12:07 | Outpatient (AMB) | payer MEDICARE, SELFPAY ==
--- NOTE | 2025-04-29 12:19 | MHC.OFFWIV ---
Intake Vital Signs 04/29/25 12:20 Height 5 ft 11 in Weight 200 lb BMI 27.9 BP 110/62 Blood Pressure Location Rt brachial Position Sitting Pulse 65 Pulse Source Pulse Oximeter Temp 97.9 F Temp Source Oral Pulse Oximetry (%) 96 Oxygen Delivery Method Room Air Intake Visit Reasons: EP Cold symptoms for 2 weeks Intake Note: Patient presents c/o sinus congestion, fatigue, SOB x2 weeks. Patient Tobacco Use Status: Never used Tobacco Allergies No Known Allergies Allergy (Verified 04/29/25 12:20) HPI HPI Comments History of Present Illness Details 65-year-old male presents to the walk-in clinic with complaints of upper respiratory symptoms for the past 2 weeks. Reports sinus congestion, fatigue, and shortness of breath. States he has been taking ooyc-gwd-touishl remedies with no relief. Denies fevers, chills, nausea, or vomiting. No other associated symptoms reported. [facility] Medical History (Updated 04/29/25 @ 13:22 by Harriett Pereira NP) Cough Shortness of breath RBBB (right bundle branch block) Prostate cancer Anxiety Angioleiomyoma Reactive depression BPH (benign prostatic hyperplasia) Varicose veins of anus or rectum Herpes dermatitis Cervical radiculopathy Lumbar disc disease Ulcerative colitis Surgical History Hx of shoulder surgery Hx of neck surgery History of colonoscopy (~07/29/23) [place] teeth extracted History of spinal fusion Social History (Updated 03/04/25 @ 13:20 by SHERRELL Cha) Housing: House Alcohol intake: current Alcohol intake frequency: holidays/special occasions only Patient Tobacco Use Status: Never used Tobacco service: No Current occupational status: employed Cognitive needs: No Hearing needs: No Vision needs: No Review of Systems Const All systems reviewed & are unremarkable except as noted in HPI and below Physical Exam Vital Signs: Last Vital Signs Temp 97.9 F 04/29/25 12:20 Pulse 65 04/29/25 12:20 BP 110/62 04/29/25 12:20 Pulse Ox 96 04/29/25 12:20 Oxygen Delivery Method Room Air 04/29/25 12:20 BMI result Body Mass Index 27.9 Const General: no acute distress Nutritional Appearance: well nourished Orientation/consciousness: patient oriented x3 HEENT Head: Yes normocephalic Ears: external ears normal and TM abnormal bulging and with fluid behind the TM bilateral General nose exam: Normal external nose present Face and sinus: Yes sinuses nontender Mouth: moist mucous membranes Throat: Yes uvula midline Resp Effort & Inspection: normal respiratory effort, able to speak in complete sentences and Actively coughing Auscultation: no crackles, no rales, rhonchi and wheezes Cardio Heart sounds: S1 normal heart sound present and S2 normal heart sound present Neuro General: patient oriented x3 Assessment & Plan Assessment & Plan (1) Cough: Code(s): R05.9 - Cough, unspecified Plan: Ordered Chest Xray due to Abnormal Lung Sounds. Ordered SARs Ordered Zpack for 3 days. Recommend intranasal corticosteroid spray daily Continue supportive care: hydration, rest, saline nasal spray May use acetaminophen or ibuprofen as needed for discomfort Educated patient on red flag symptoms: worsening SOB, chest pain, high fever, or dizziness Orders: Orders XR chest 2V Today R05.9 - Cough, unspecified SARS-CoV2/FLU/RSV Today R05.9 - Cough, unspecified Medications: New dextromethorphan polistirex ER (Delsy 12 hour) 10 mL PO Q12H 89 mL 0RF cough J06.9 - Acute upper respiratory infection, unspecified prednisone 50 mg PO DAILY 5 tabs 0RF 5 days R05.9 - Cough, unspecified azithromycin 500 mg PO DAILY 3 tabs 0RF 3 days R05.9 - Cough, unspecified Coding Level of Care Code Est Pt Level 4 (96819) Diagnoses Cough R05.9 Time Spent (min) 20
[2025-04-29 12:20] VITALS: BP 110/62; PULSE 65; TEMP 36.6; O2SAT 96; BMI 27.9
--- OUTSIDE RECORDS SUMMARY | 2025-04-29 14:12 | XMS_ITS | Encounter Summary ---
Author Organization [facility] Address [address] [place] [phone] Phone Care Team Providers Care Instant Printer Operator Name Role Phone Dieudonne Luna DO Primary Care Provider [phone] Encounter Details Date Type Department Care Team (Late st Contact Info) Description 06/02/2021 Ancillary Orders [facility],Outside Imaging [address] [place] [address] System, Provider Not In, [place] [address] Social History Tobacco Use Types Packs/Day Years [...] on filedocumented in this encounter Care Teams Instant Printer Operator Relationship Specialty Start Date End Date Dieudonne Luna DO [address] [place] [phone] PCP - General 05/26/21 documented as of this encounter Additional Source Comments The information contained in this document represents components of the legal health record. It is not the complete legal health record.[facility]
--- OUTSIDE RECORDS SUMMARY | 2025-04-29 14:12 | XMS_ITS | Encounter Summary ---
Author Organization [facility] Address [address] [place] [phone] Care Team Providers Care Engineering Drawings Checker Name Role Phone Dieudonne Luna DO Primary Care Provider [phone] Encounter Details Date Type Department Care Team (Late st Contact Info) Description 11/30/2024 Lab Requisition [facility] - Main Lab 299 [facility] [place] [address] Musa Bassett MD [address] [facility] 103 [place] [address] Urinary tract infection, site not [...] Escherichia coli(A) NORMA 12/01/2024 8:08 AM EDT [facility] ([facility]) [facility] Other Urine specimen from urethra / [...] MICROBIOLOGY - GENERAL ORDER CK Final Result [facility] ([facility]) HOSPITAL LAB [address] [place] [address], documented in this encounter Visit Diagnoses Diagnosis Urinary tract infection, site not specified documented in this encounter Care Teams Engineering Drawings Checker Relationship Specialty Start Date End Date Dieudonne Luna DO [address] [place] [phone] PCP - General Internal Medicine 11/30/24 documented as of this encounter
--- OUTSIDE RECORDS SUMMARY | 2025-04-29 14:12 | XMS_ITS | Clinical Summary ---
Author Organization [facility] Address [address] [place] [phone] Phone Care Team Providers Care Multiple Drill Operator Name Role Phone Dieudonne Luna DO Primary Care Provider [phone] Allergies No known active allergies Medications tamsulosin [...] file Insurance MEDICARE PART A & B [employer] SUPPLEMENT MEDICARE PART A & B [employer] MED[employer] SUPPLEMENT MEDICARE PART A & B [employer] SUPPLEMENT MEDICARE PART A & B [employer] SUPPLEMENT MEDICARE PART A & B [employer] SUPPLEMENT MEDICARE PART A & B [employer] SUPPLEMENT Care Teams Multiple Drill Operator Relationship Specialty Start Date End Date Dieudonne Luna DO [address] [place] [phone] PCP - General 05/26/21 Additional Source Comments The information contained in this document represents components of the legal health record. It is not the complete legal health record.[facility]
--- OUTSIDE RECORDS SUMMARY | 2025-04-29 14:12 | XMS_ITS | Encounter Summary ---
Author Organization [facility] Address [address] [place] [phone] Care Team Providers Care Blending Operator Name Role Phone Dieudonne Luna DO Primary Care Provider [phone] Encounter Details Date Type Department Care Team (Late st Contact Info) Description 10/10/2024 Lab Requisition [facility] - Main Lab 299 [facility] [place] [address] Delmer Soto PA [address] [facility] 103 [place] [address] Malignant neoplasm of prostate ([facility]/HCC V24, CMS/[facility] V28) Social History Tobacco Use Types Packs/Day [...] LAB CHEMISTRY METHOD 10/10/2024 3:59 PM EDT [facility] ([email or web address] Blood Venous blood specimen / Unknown 10/10/2024 10:18 AM EDT 10/10/2024 1:31 PM EDT Narrative [facility] ([facility] LAB - 10/10/2024 3:59 PM EDT The Siemens Advia Centaur Chemiluminescent Immunoassay is used. Results obtained with different assay methods or kits cannot be used interchangeably. Results cannot be interpreted as absolute evidence of the presence or absence of malignant disease. us Delmer BONILLA LAB BLOOD ORDERABLES Final Resul t [facility] [address] [place] [address], documented in this encounter Visit Diagnoses Diagnosis Malignant neoplasm of prostate (CMS/HCC V24, CMS/HCC V28) Malignant neoplasm of prostate documented in this encounter Care Teams Blending Operator Relationship Specialty Start Date End Date Dieudonne Luna DO [address] [place] [phone] PCP - General Internal Medicine 11/30/24 documented as of this encounter
--- OUTSIDE RECORDS SUMMARY | 2025-04-29 14:12 | XMS_ITS | Clinical Summary ---
Author Organization 299 [facility] Address [address] [place] [address] Phone Care Team Providers Care Machine Grinder Name Role Phone Dieudonne Luna DO Primary Care Provider [phone] Social History Tobacco Use Types Packs/Day Years [...] Health Screening 10/11/2024 COVID-19 Vaccine (1 - 2024-2 6 season) 2024 Influenza Vaccine (#1) 2024 RSV [...] age to complete this topic Insurance MEDICARE [facility] Care Teams Machine Grinder Relationship Specialty Start Date End Date Dieudonne Luna DO [address] [place] [phone] PCP - General Internal Medicine 11/30/24
== END 2025-04-29 13:24 | disposition home or self-care (01) ==
PROVIDERS: PCP Internal Medicine; Visit Provider Nurse Practitioner Family
DX: R05.9 Cough, unspecified (principal)

== ENCOUNTER → 2025-04-29 13:35 | Outpatient (BNV) | payer MEDICARE, SELFPAY | PROVIDERS: PCP Internal Medicine; Visit Provider Radiology Diagnostic Radiology | DX: R05.9 Cough, unspecified (principal) | CPT/HCPCS: 71046 ==